=== PATIENT | female | born 1990 | race Caucasian/White ===

== ENCOUNTER → 2016-06-25 | Outpatient (CLI) | payer BC ==
--- NOTE | 2016-06-25 09:50 | US ---
EXAMINATION TYPE: US abdomen complete DATE OF EXAM: 06/25/2016 9:18 AM COMPARISON: NONE CLINICAL HISTORY: 26yr old patient that had s stroke last month, no symptoms, abnormal LFTs. EXAM MEASUREMENTS: Liver Length: 19.0cm Gallbladder Wall: 0.2cm CBD: 0.4cm Spleen: 11.6cm Right Kidney: 9.2 x 3.6 x 5.0cm Left Kidney: 11.9 x 4.9 x 6.2cm ANATOMY: TECHNOLOGIST IMPRESSION: overlying bowel gas and large body habitus limits exam Pancreas: areas seen appears wnl Liver: heterogeneous that is slightly large Gallbladder: wnl Evidence for sonographic Quinn's sign: no CBD: wnl Spleen: wnl Right Kidney: wnl Left Kidney: wnl Upper IVC: wnl Abd Aorta: portions are gassed out, otherwise appears wnl The liver is heterogenous which may reflect fatty liver with mild enlargement.. The intrahepatic por tion of the IVC and proximal abdominal aorta are within normal limits. There is no evidence of demarcus lithiasis. Common bile duct is unremarkable. The visualized portions of the pancreas are homogenous . The spleen is unremarkable. Kidneys are symmetric and free of hydronephrosis. No renal lesions a re seen. IMPRESSION: Fatty liver with mild hepatic enlargement. Normal Values: Liver Length: < 16cm wnl, 17-18cm upper limits, >18cm enlarged Spleen Length = < 13cm Renal Length = 9 - 12cm GB Wall: < 0.3cm CBD: < 0.6cm or < 1.0cm post cholecystectomy
== END | disposition home or self-care (01) ==
LOC: RADUSWWP 08:47
PROVIDERS: ATTEND Family Medicine
DX: K76.0 Fatty (change of) liver, not elsewhere classified (principal); R16.0 Hepatomegaly, not elsewhere classified
CPT/HCPCS: 76700

== ENCOUNTER 2016-07-03 14:27 | Emergency (ER) | payer BC ==
[2016-07-03] MEDS ORDERED: DIAZEPAM 5 MG/ML 2 ML SYRINGE IVP STA (15:40)
[2016-07-03] MEDS ORDERED: SODIUM CHLORIDE 0.9% 1,000 ML IV ONE (15:40)
[2016-07-03] MEDS ORDERED: MECLIZINE 12.5 MG TAB PO STA (15:41)
[2016-07-03 16:16] LABS: Basophils # (A) 0.1 k/uL (0-0.2); Basophils % (A) 1 %; CH 27.9; CHCM 34.2; Eosinophils % (A) 0 %; HCT 46.4 % (34.0-46.0); HDW 3.04; HGB 15.4 gm/dL (11.4-16.0); Luc # (Auto) 0.17; Luc % (Auto) 2; Lymphocytes # (A) 1.8 k/uL (1.0-4.8); Lymphocytes % (A) 16 %; MCH 27.2 pg (25.0-35.0); MCHC 33.2 g/dL (31.0-37.0); MCV 81.9 fL (80.0-100.0); Mean Platelet Volume 7.8; Monocytes # (A) 0.6 k/uL (0-1.0); Monocytes % (A) 5 %; Neutrophils # (A) 8.1 k/uL (1.3-7.7); Neutrophils % (A) 76 %; RBC 5.66 m/uL (3.80-5.40); RDW 14.5 % (11.5-15.5); WBC 10.7 k/uL (3.8-10.6); WBC (Perox) 10.27
[2016-07-03 16:25] LABS: Anion Gap 15 mmol/L; Blood Urea Nitrogen 8 mg/dL (7-17); Calcium 10.3 mg/dL (8.4-10.2); Carbon Dioxide 23 mmol/L (22-30); Chloride 107 mmol/L (98-107); Glucose 99 mg/dL (74-99); HCG,Qualitative Serum Not Detected; Non-African American GFR(MDRD) >60 (>60 ml/min/1.73 sqM); Sodium 145 mmol/L (137-145)
[2016-07-03 16:26] LABS: INR 1.1 (<1.1); Partial Thromboplastin Time 24.8 sec (22.0-30.0); Prothrombin Time 10.8 sec (9.0-12.0)
--- NOTE | 2016-07-03 17:09 | CT ---
EXAMINATION TYPE: CT brain wo con DATE OF EXAM: 07/03/2016 4:59 PM COMPARISON: 05/30/2016 HISTORY: 26-year-old female with right side facial and right hand numbness. Previous history of strok e. TECHNIQUE: Examination was done in axial plane without intravenous contrast. Coronal and sagittal reconstructio ns performed. CT DLP: 910.4 mGycm Automated exposure control for dose reduction was used. FINDINGS: There is no evidence of acute intracranial hemorrhage, acute ischemic changes, mass, mass-effect, or extra-axial fluid collection. There is no effacement of cerebral sulci or basal subarachnoid cister ns. There is no hydrocephalus. There is no midline shift. Greene-white matter distinction is preserv ed. There is some asymmetric prominence to the right sylvian fissure as compared to the prior exam possib ly relating some volume loss as a sequela of patient's previous infarct. Cerebellar tonsillar ectopia, intermediate between benign tonsillar ectopia and Chiari I malformation . Paranasal sinuses and mastoid air cells are well pneumatized. Orbits and globes are intact. IMPRESSION: 1. No acute intracranial abnormality seen. 2. As compared to the prior exam, there is asymmetric prominence to the right sylvian fissure possibl y due to volume loss as a sequela of patient's previous infarct. 3. Indeterminate between benign cerebellar tonsillar ectopia and Chiari 1 malformation. Clinically co rrelate with patient's symptoms.
--- NOTE | 2016-07-03 17:20 | XR ---
EXAMINATION TYPE: XR chest 2V DATE OF EXAM: 07/03/2016 5:02 PM COMPARISON: 05/30/2016 HISTORY: Weakness TECHNIQUE: Frontal and lateral views of the chest are obtained. FINDINGS: Heart and mediastinum are normal. Lungs are clear. Diaphragm is normal. Bony thorax and so ft tissues appear normal. IMPRESSION: Normal chest. No change.
--- NOTE | 2016-07-03 18:02 | ED ---
General Adult HPI - General Chief complaint: Dizziness Stated complaint: Dizzy/Numbness Time Seen by Provider: 07/03/16 14:51 Source: patient, family Mode of arrival: wheelchair Limitations: no limitations - History of Present Illness Initial comments: 26-year-old female with past medical history of CVA on May 30 presented for evaluation of lightheadedness since her discharge back in May. She states that she initially had her symptoms for a few days but they resolved for about a week. Her symptoms resumed and she has continued to have lightheadedness/dizziness since. She states that recently she had some right cheek numbness and at another occasion right fourth and fifth finger numbness as well as right ear pain. She describes her symptoms as feeling drunk and that when she lays down she feels like she continues to move. Her CVA left her with minimal left-sided deficits including weakness and decreased sensation and she states that these have not worsened.Her Neurologist is Dr. Newton. - Related Data Home Medications Medication Instructions Recorded Confirmed Clopidogrel [Plavix] 75 mg PO DAILY 07/03/16 07/03/16 Previous Rx's Medication Instructions Recorded Aspirin 81 mg PO DAILY #30 chewable 06/01/16 Atorvastatin Calcium [Lipitor] 20 mg PO HS #30 tab 06/01/16 Diazepam [Valium] 5 mg PO BID PRN #8 tab 07/03/16 Meclizine [Antivert] 25 mg PO BID #60 tab 07/03/16 Allergies Allergy/AdvReac Type Severity Reaction Status Date / Time No Known Allergies Allergy Verified 07/03/16 15:59 Review of Systems ROS Statement: Those systems with pertinent positive or pertinent negative responses have been documented in the HPI. General: Patient denies fever, chills,nausea, or vomiting. HEENT: No visual changes. No eye pain. No nasal symptoms. No dysphagia.No odynophagia. No ENT pain. Cardiac: No chest pain. No palpitations. Pulmonary; No dyspnea. Denies cough. GI: No abdominal pain. No diarrhea. No constipation. No bowel habit changes. No melena. No hematochezia. See general. : No dysuria.No hematuria. No hesitancy. No urgency. No renal lithiasis history. Musculoskeletal: No musculoskeletal pain. Orthopedic: Denies fracture history. Integumentary: Denies rash. Denies pruritis. Neurologic: Positive lightheadedness dizziness since May. Denies any lateralizing weakness. Denies numbness. Denies tingling. No seizure activity. History of CVA . Heme/Onc: Denies anemia. Denies cancer. Denies adenopathy. ROS Other: All systems not noted in ROS Statement are negative. Past Medical History Past Medical History: Asthma, CVA/TIA History of Any Multi-Drug Resistant Organisms: None Reported Past Surgical History: No Surgical Hx Reported Past Anesthesia/Blood Transfusion Reactions: No Reported Reaction Past Psychological History: Anxiety, Depression Smoking Status: Never smoker Past Alcohol Use History: None Reported Past Drug Use History: None Reported - Past Family History Father Family Medical History: No Reported History Mother Family Medical History: AFIB, Hypertension General Exam - General Exam Comments Initial Comments: General: The patient is awake and alert, in no distress, and does not appear acutely ill. Eye: Pupils are equal, round and reactive to light, extra-ocular movements are intact; there is normal conjunctiva bilaterally. No signs of icterus. Ears, nose, mouth and throat: There are moist mucous membranes and no oral lesions. Neck: The neck is supple, there is no tenderness or JVD. Cardiovascular: There is a regular rate and rhythm. No murmur, rub or gallop is appreciated. Respiratory: Lungs are clear to auscultation, respirations are non-labored, breath sounds are equal. No wheezes, stridor, rales, or rhonchi. Gastrointestinal: Soft, non-distended, non-tender abdomen without masses or organomegaly noted. There is no rebound or guarding present. Back: There is no tenderness to palpation in the midline. There is no obvious deformity. No rashes noted. Musculoskeletal: Normal ROM, no tenderness, There is no pedal edema. There is no calf tenderness or swelling. Sensation intact. Pulses equal bilaterally 2+. Neurological: CN II-XII intact, left-sided sensory deficits that are unchanged from previous. Coordination appears grossly intact. Speech is normal. Skin: Skin is warm and dry and no rashes or lesions are noted. Psychiatric: Cooperative, appropriate mood & affect, normal judgment. Patient anxious and tearful throughout exam. Limitations: no limitations Course Vital Signs 07/03/16 07/03/16 14:28 18:30 Temperature 99.6 F 97.9 F Pulse Rate 86 77 Respiratory 20 18 Rate Blood Pressure 140/83 137/69 O2 Sat by Pulse 99 99 Oximetry EKG Findings - EKG Comments: EKG Findings:: EKG shows normal sinus rhythm with sinus arrhythmia, ventricular rate of 80, DICK 132, QRS 88, QT/QTC 384/442 Medical Decision Making - Medical Decision Making 26-year-old female with history of CVA on May 30 presented for evaluation of lightheadedness and dizziness that is present since discharge on May 30. She states that she has been evaluated by her primary care physician a few times for the dizziness and has not been provided with any symptomatic relief. On physical exam the patient has left sided sensory deficit, mild, but not worsened since her recovery from the CVA. Although she states a left-sided weakness this is not noted on physical exam. Cranial nerves II through XII intact and patient ambulated in hallways with normal gait and station, without ataxia. Patient is anxious and tearful throughout exam stating that she lives in fear of having another stroke. Discussed the case with her neurologist Dr. Newton who stated that she should have a CT of her head and that if this was negative she should be discharged with Antivert and follow-up with him next week. 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 The patient was informed of this and that she would be discharged with instructions to follow with her primary care doctor and her neurologist. She was reevaluated and had some improvement with her symptoms. She was informed that she should return if her symptoms should worsen or persist. She acknowledged an understanding of this information and agreed with this plan of care. - Lab Data Result diagrams: 07/03/16 15:54 07/03/16 15:54 Lab Results 07/03/16 07/03/16 07/03/16 Range/Units 15:54 15:54 15:54 WBC 10.7 H (3.8-10.6) k/uL RBC 5.66 H (3.80-5.40) m/uL Hgb 15.4 (11.4-16.0) gm/dL Hct 46.4 H (34.0-46.0) % MCV 81.9 (80.0-100.0) fL MCH 27.2 (25.0-35.0) pg MCHC 33.2 (31.0-37.0) g/dL RDW 14.5 (11.5-15.5) % Plt Count 303 (150-450) k/uL Neutrophils % 76 % Lymphocytes % 16 % Monocytes % 5 % Eosinophils % 0 % Basophils % 1 % Neutrophils # 8.1 H (1.3-7.7) k/uL Lymphocytes # 1.8 (1.0-4.8) k/uL Monocytes # 0.6 (0-1.0) k/uL Eosinophils # 0.0 (0-0.7) k/uL Basophils # 0.1 (0-0.2) k/uL PT (9.0-12.0) sec INR (<1.1) APTT (22.0-30.0) sec Sodium 145 (137-145) mmol/L Potassium 4.0 (3.5-5.1) mmol/L Chloride 107 (98-107) mmol/L Carbon Dioxide 23 (22-30) mmol/L Anion Gap 15 mmol/L BUN 8 (7-17) mg/dL Creatinine 0.97 (0.52-1.04) mg/dL Est GFR (MDRD) Af Amer >60 (>60 ml/min/1.73 sqM) Est GFR (MDRD) Non-Af >60 (>60 ml/min/1.73 sqM) Glucose 99 (74-99) mg/dL Calcium 10.3 H (8.4-10.2) mg/dL Troponin I (0.000-0.034) ng/mL NT-Pro-B Natriuret Pep pg/mL HCG, Qual Not Detected Influenza Type A RNA Not Detected (Not Detectd) Influenza Type B (PCR) Not Detected (Not Detectd) 07/03/16 07/03/16 07/03/16 Range/Units 15:54 15:54 15:54 WBC (3.8-10.6) k/uL RBC (3.80-5.40) m/uL Hgb (11.4-16.0) gm/dL Hct (34.0-46.0) % MCV (80.0-100.0) fL MCH (25.0-35.0) pg MCHC (31.0-37.0) g/dL RDW (11.5-15.5) % Plt Count (150-450) k/uL Neutrophils % % Lymphocytes % % Monocytes % % Eosinophils % % Basophils % % Neutrophils # (1.3-7.7) k/uL Lymphocytes # (1.0-4.8) k/uL Monocytes # (0-1.0) k/uL Eosinophils # (0-0.7) k/uL Basophils # (0-0.2) k/uL PT 10.8 (9.0-12.0) sec INR 1.1 (<1.1) APTT 24.8 (22.0-30.0) sec Sodium (137-145) mmol/L Potassium (3.5-5.1) mmol/L Chloride (98-107) mmol/L Carbon Dioxide (22-30) mmol/L Anion Gap mmol/L BUN (7-17) mg/dL Creatinine (0.52-1.04) mg/dL Est GFR (MDRD) Af Amer (>60 ml/min/1.73 sqM) Est GFR (MDRD) Non-Af (>60 ml/min/1.73 sqM) Glucose (74-99) mg/dL Calcium (8.4-10.2) mg/dL Troponin I <0.012 (0.000-0.034) ng/mL NT-Pro-B Natriuret Pep 103 pg/mL HCG, Qual Influenza Type A RNA (Not Detectd) Influenza Type B (PCR) (Not Detectd) Disposition Clinical Impression: Dizziness, Anxiety, Benign paroxysmal positional vertigo Disposition: HOME SELF-CARE Condition: Stable Instructions: Dizziness (ED) Additional Instructions: Please use medication as discussed. Please follow up with family doctor if symptoms have not improved over the next two days. Please return to the emergency room if your symptoms increase or worsen or for any other concerns. Prescriptions: Diazepam [Valium] 5 mg PO BID PRN #8 tab PRN Reason: Anxiety Meclizine [Antivert] 25 mg PO BID #60 tab Referrals: Carlos Spencer MD [Primary Care Provider] - 1-2 days Time of Disposition: 18:01
[2016-07-03 18:33] VITALS: BP 137/69; PULSE 77; RESP 18; TEMP 97.9
== END 2016-07-03 18:30 | disposition home or self-care (01) ==
LOC: EC 14:27
DX: H81.10 Benign paroxysmal vertigo, unspecified ear (principal); F41.9 Anxiety disorder, unspecified; I69.354 Hemiplegia and hemiparesis following cerebral infarction affecting left non-dominant side; Z79.82 Long term (current) use of aspirin; Z79.02 Long term (current) use of antithrombotics/antiplatelets; Z79.899 Other long term (current) drug therapy
CPT/HCPCS: 36415; 93005; 83880; 80048; 84484; 85025; 85610; 85730; 84703; 87502; 71020; 70450; 96374; 96361 ×2; 99284; J3360

== ENCOUNTER → 2017-03-30 | Outpatient (CLI) | payer BC, OTHER ==
--- NOTE | 2017-03-30 14:13 | MR ---
EXAMINATION TYPE: MR shoulder LT wo con DATE OF EXAM: 03/30/2017 COMPARISON: Left shoulder x-ray March 15, 2017 HISTORY: Left shoulder pain with difficulty raising overhead for 9 months. TECHNIQUE: Multiplanar, multisequence imaging of the left shoulder is performed without contrast. FINDINGS: Exam is suboptimal as there is artifact degradation present product of patient motion and b dudley habitus. Rotator Cuff: Supraspinatus and infraspinatus tendons are both intact to humeral head attachment. Ray e increased signal is seen distally. No suspicious partial or full-thickness retracted tear is presen t. Rotator cuff muscle bulk is preserved. Subscapularis tendon is intact. Acromioclavicular Joint: Acromioclavicular joint is felt within normal limits. Distal acromion morpho logy is unremarkable. Glenohumeral Joint: There is small glenohumeral joint effusion. No significant spurring is seen. Labrum: The labrum appears markedly abnormal with increased signal present extending into biceps age- related posteriorly into biceps tendon anchor seen best paracoronal image 9 with extension into intra -articular portion difficult to exclude. There is 9 mm paraLabral cyst correlating with tear on parac oronal image 14 Biceps Tendon: The long head of biceps is in normal location within bicipital groove. Intra-articular portion is less well-seen but felt intact. Bone marrow signal: No focal abnormal marrow signal is appreciated. Other: No additional significant abnormality is appreciated. IMPRESSION: Complex SLAP tear extending into biceps anchor as detailed above.
== END | disposition home or self-care (01) ==
LOC: RADMRIMAIN 11:01
PROVIDERS: ATTEND Orthopaedic Surgery
DX: S43.432A Superior glenoid labrum lesion of left shoulder, initial encounter (principal)

== ENCOUNTER → 2017-05-15 | Outpatient (CLI) | payer OTHER ==
--- NOTE | 2017-05-15 11:29 | MR ---
EXAMINATION TYPE: MR brain wo/w con DATE OF EXAM: 05/15/2017 COMPARISON: CT 07/03/2016 and MRI 06/01/2016 HISTORY: 26 year-old female follow-up for history of stroke, no new symptoms TECHNIQUE: Multiplanar, multisequence images of the brain and brainstem were acquired before and aft er administration of 8.5 mL IV Gadavist. Diffusion weighted imaging is performed. FINDINGS: Pronounced artifacts on the diffusion weighted sequence. Likely related to dental amalgam. Areas of b right signal are symmetrical and in an unusual angular pattern suggesting artifacts. No definite rest ricted diffusion is seen. No evidence for hemorrhage, mass, mass effect, midline shift, herniation, effacement of basal cistern s, or extra-axial fluid collection. There is mild encephalomalacia and gliosis at the site of previous infarct, posterior insular cortex extending into the lateral anterior parietal lobe on the right. There is no abnormal enhancement in t his region The ventricles and sulci are age-appropriate. Major intracranial flow voids are intact. T2/FLAIR weighted sequences show no other white matter signal abnormality. There is limitation in ass essment of the anterior temporal lobes, sylvester, medulla on the axial T2/flair sequence due to dental am algam artifact. Midline structures demonstrate normal morphology. On the present exam, there is redemonstrated crowdi ng at the foramen magnum but now with slight beaked appearance to the cerebellar tonsils and 6 mm pro jection of the tonsils below the foramen magnum. Otherwise, the craniocervical junction is normal. Post contrast images demonstrate no evidence of pathologic enhancement. Dural venous sinuses are pat ent. The visualized sinuses and globes are limited due to the artifact. IMPRESSION: 1. Pronounced artifacts suspected to be due to dental amalgam. No definite acute intracranial abnorma lity seen on DWI. 2. Some interval encephalomalacia and gliosis in the right insular-parietal junction relating to the patient's previous infarct seen on 06/01/2016. 3. 6 mm of cerebellar tonsillar ectopia is currently measured. There is also slightly beaked appearan ce to the tonsils. Correlate for any symptoms of Chiari I malformation
== END | disposition home or self-care (01) ==
LOC: RADMRIMAIN 09:45
PROVIDERS: ATTEND Psychiatry & Neurology Neurology
DX: Q04.8 Other specified congenital malformations of brain (principal); Z86.73 Personal history of transient ischemic attack (TIA), and cerebral infarction without residual deficits
CPT/HCPCS: 70553; A9581

== ENCOUNTER → 2017-07-23 | Outpatient (CLI) | payer OTHER ==
[2017-07-23 13:27] LABS: Prothrombin Time 10.3 sec (9.0-12.0)
== END | disposition home or self-care (01) ==
LOC: LABWHC1 12:43
PROVIDERS: ATTEND Psychiatry & Neurology Neurology
DX: Z09 Encounter for follow-up examination after completed treatment for conditions other than malignant neoplasm (principal); Z86.73 Personal history of transient ischemic attack (TIA), and cerebral infarction without residual deficits
CPT/HCPCS: 36415; 81241; 81291; 85610

== ENCOUNTER 2017-09-28 19:48 | Emergency (ER) | payer OTHER ==
[2017-09-28 19:58] VITALS: TEMP 97.9
[2017-09-28 20:27] LABS: Basophils # (A) 0.1 k/uL (0-0.2); Basophils % (A) 0 %; Eosinophils # (A) 0.1 k/uL (0-0.7); Eosinophils % (A) 1 %; HCT 47.6 % (34.0-46.0); Lymphocytes % (A) 25 %; MCH 26.8 pg (25.0-35.0); MCHC 33.5 g/dL (31.0-37.0); MCV 79.8 fL (80.0-100.0); Mean Platelet Volume 7.1; Monocytes # (A) 0.6 k/uL (0-1.0); Monocytes % (A) 5 %; Neutrophils # (A) 7.9 k/uL (1.3-7.7); Neutrophils % (A) 66 %; Platelet Count 366 k/uL (150-450); RBC 5.96 m/uL (3.80-5.40); RDW 13.9 % (11.5-15.5); WBC 11.9 k/uL (3.8-10.6)
[2017-09-28 20:36] LABS: INR 1.1 (<1.2); Prothrombin Time 10.9 sec (9.0-12.0)
[2017-09-28 20:40] LABS: ALT 34 U/L (9-52); AST 24 U/L (14-36); Albumin 4.7 g/dL (3.5-5.0); Alkaline Phosphatase 120 U/L (38-126); Anion Gap 22 mmol/L; Blood Urea Nitrogen 11 mg/dL (7-17); Calcium 10.4 mg/dL (8.4-10.2); Carbon Dioxide 14 mmol/L (22-30); Chloride 107 mmol/L (98-107); Glucose 85 mg/dL (74-99); Potassium 3.8 mmol/L (3.5-5.1); Sodium 143 mmol/L (137-145); Total Bilirubin 0.5 mg/dL (0.2-1.3); Total Protein 8.3 g/dL (6.3-8.2)
[2017-09-28 20:41] LABS: Creatine Kinase 64 U/L (30-135)
[2017-09-28 20:53] LABS: Creatine Kinase MB 0.9 ng/mL (0.0-2.4); Troponin I <0.012 ng/mL (0.000-0.034)
[2017-09-28] MEDS ORDERED: MAG HYDROX/AL HYDROX/SIMETH 30 ML, HYOSCYAMINE ELIXIR 10 ML, CIMETIDINE HCL 300 MG PO STA ×3 (22:27)
[2017-09-28] MEDS ORDERED: LORazepam 2 MG/ML INJ IV STA (22:27)
[2017-09-28] MEDS ORDERED: ONDANSETRON 4 MG/2 ML VIAL IVP STA (22:28)
[2017-09-28] MEDS ORDERED: FAMOTIDINE 20 MG/2 ML VIAL IV STA (22:28)
--- NOTE | 2017-09-28 22:34 | ED ---
General Adult HPI - General Chief complaint: Neuro Symptoms/Deficit Stated complaint: left side numbness/chest pain/nausea Time Seen by Provider: 09/28/17 22:14 Source: patient, RN notes reviewed Mode of arrival: wheelchair Limitations: no limitations - History of Present Illness Initial comments: This a 27-year-old female presents emergency Department with multiple complaints. Patient states that she's been having worsening depression and anxiety over the last few weeks to months. She states she does take Paxil currently. She states that she's gained to the point where she has not been eating or drinking much because she's been having some acid reflux and epigastric discomfort. Patient denies any vomiting at this time denies any diarrhea, constipation, melena or hematochezia. Patient states that she's also been having ongoing chest pain over the last few days she has been unchanged no shortness of breath. She does admit that she believes it's related to her anxiety though she has a history of CVA in which she does see a neurologist. Patient states he cannot cause for her CVA though she is currently taking Plavix. Patient went to a headache with some worst headache she states it's diffuse headache. She denies any focal weakness. Patient denies any chance . Patient states she currently takes Depo-Provera injections. Patient any dysuria, hematuria - Related Data Home Medications Medication Instructions Recorded Confirmed Clopidogrel [Plavix] 75 mg PO DAILY 07/03/16 06/05/17 Baclofen [Lioresal] 10 mg PO HS 06/05/17 06/05/17 Cholecalciferol [Vitamin D3] 1,000 unit PO DAILY 06/05/17 06/05/17 Multivitamins, Thera [Multivitamin 1 tab PO DAILY 06/05/17 06/05/17 (formulary)] [place]-3 Fatty Acids/Fish Oil [Fish 1 cap PO DAILY 06/05/17 06/05/17 Oil 1,000 mg Softgel] PARoxetine [Paxil] 20 mg PO DAILY 06/05/17 06/05/17 Previous Rx's Medication Instructions Recorded Famotidine [Pepcid] 20 mg PO BID #28 tablet 09/28/17 LORazepam [Ativan] 0.5 mg PO BID #10 tab 09/28/17 Ondansetron Odt [Zofran Odt] 4 mg PO Q8HR PRN #10 tab 09/28/17 Sucralfate [Carafate] 1 gm PO BID #14 tablet 09/28/17 Allergies Allergy/AdvReac Type Severity Reaction Status Date / Time No Known Allergies Allergy Verified 09/28/17 19:58 Review of Systems ROS Statement: Those systems with pertinent positive or pertinent negative responses have been documented in the HPI. ROS Other: All systems not noted in ROS Statement are negative. Past Medical History Past Medical History: Asthma, CVA/TIA History of Any Multi-Drug Resistant Organisms: None Reported Past Surgical History: No Surgical Hx Reported Past Anesthesia/Blood Transfusion Reactions: No Reported Reaction Past Psychological History: Anxiety, Depression Smoking Status: Never smoker Past Alcohol Use History: None Reported Past Drug Use History: None Reported - Past Family History Father Family Medical History: No Reported History Mother Family Medical History: AFIB, Hypertension General Exam Limitations: no limitations General appearance: alert, in no apparent distress, anxious Head exam: Present: atraumatic, normocephalic, normal inspection Eye exam: Present: normal appearance, PERRL, EOMI. Absent: scleral icterus, conjunctival injection, periorbital swelling ENT exam: Present: normal exam, normal oropharynx, mucous membranes moist Neck exam: Present: normal inspection, full ROM. Absent: tenderness, meningismus, lymphadenopathy Respiratory exam: Present: normal lung sounds bilaterally. Absent: respiratory distress, wheezes, rales, rhonchi, stridor Cardiovascular Exam: Present: normal rhythm, tachycardia, normal heart sounds. Absent: systolic murmur, diastolic murmur, rubs, gallop, clicks GI/Abdominal exam: Present: soft, tenderness (Epigastric tenderness), normal bowel sounds. Absent: distended, guarding, rebound, rigid Back exam: Absent: CVA tenderness (R), CVA tenderness (L) Neurological exam: Present: alert, oriented X3, CN II-XII intact, reflexes normal, other (Finger to nose intact bilaterally without overshooting.). Absent : motor sensory deficit Skin exam: Present: warm, dry, intact, normal color. Absent: rash Course Vital Signs 09/28/17 09/28/17 19:56 23:10 Temperature 97.9 F Pulse Rate 117 H 80 Respiratory 26 H 18 Rate Blood Pressure 160/102 121/66 O2 Sat by Pulse 99 99 Oximetry Medical Decision Making - Medical Decision Making 27-year-old female presented for multiple complaints. Patient went of headache chest pain nausea upset stomach. Patient has gastritis related to dietary issues. Patient was started on Pepcid as she states she cannot take omeprazole. Patient was also given Carafate. Patient is improved after Ativan she was having a panic attack the into her chest discomfort, TMs and tingling which has resolved. Patient had CT due to prior CVA there is no acute changes. She has no neurological deficits. ACS is 15 and I H scale 0. Patient is recommended to follow-up tomorrow return for any worsening symptoms. - Lab Data Result diagrams: 09/28/17 20:18 09/28/17 20:18 Lab Results 09/28/17 09/28/17 09/28/17 Range/Units 20:18 20:18 20:18 WBC 11.9 H (3.8-10.6) k/uL RBC 5.96 H (3.80-5.40) m/uL Hgb 16.0 (11.4-16.0) gm/dL Hct 47.6 H (34.0-46.0) % MCV 79.8 L (80.0-100.0) fL MCH 26.8 (25.0-35.0) pg MCHC 33.5 (31.0-37.0) g/dL RDW 13.9 (11.5-15.5) % Plt Count 366 (150-450) k/uL Neutrophils % 66 % Lymphocytes % 25 % Monocytes % 5 % Eosinophils % 1 % Basophils % 0 % Neutrophils # 7.9 H (1.3-7.7) k/uL Lymphocytes # 3.0 (1.0-4.8) k/uL Monocytes # 0.6 (0-1.0) k/uL Eosinophils # 0.1 (0-0.7) k/uL Basophils # 0.1 (0-0.2) k/uL PT (9.0-12.0) sec INR (<1.2) APTT (22.0-30.0) sec Sodium 143 (137-145) mmol/L Potassium 3.8 (3.5-5.1) mmol/L Chloride 107 (98-107) mmol/L Carbon Dioxide 14 L (22-30) mmol/L Anion Gap 22 mmol/L BUN 11 (7-17) mg/dL Creatinine 0.85 (0.52-1.04) mg/dL Est GFR (CKD-EPI)AfAm >90 (>60 ml/min/1.73 sqM) Est GFR (CKD-EPI)NonAf >90 (>60 ml/min/1.73 sqM) Glucose 85 (74-99) mg/dL Calcium 10.4 H (8.4-10.2) mg/dL Total Bilirubin 0.5 (0.2-1.3) mg/dL AST 24 (14-36) U/L ALT 34 (9-52) U/L Alkaline Phosphatase 120 (38-126) U/L Total Creatine Kinase 64 (30-135) U/L CK-MB (CK-2) 0.9 (0.0-2.4) ng/mL CK-MB (CK-2) Rel Index 1.4 Troponin I <0.012 (0.000-0.034) ng/mL Total Protein 8.3 H (6.3-8.2) g/dL Albumin 4.7 (3.5-5.0) g/dL Urine Color Urine Appearance (Clear) Urine pH (5.0-8.0) Ur Specific [place] (1.001-1.035) Urine Protein (Negative) Urine Glucose (UA) (Negative) Urine Ketones (Negative) Urine Blood (Negative) Urine Nitrite (Negative) Urine Bilirubin (Negative) Urine Urobilinogen (<2.0) mg/dL Ur Leukocyte Esterase (Negative) Urine RBC (0-5) /hpf Urine WBC (0-5) /hpf Ur Squamous Epith Cells (0-4) /hpf Hyaline Casts (0-2) /lpf Urine Mucus (None) /hpf Urine HCG, Qual (Not Detectd) Urine Opiates Screen (NotDetected) Ur Oxycodone Screen (NotDetected) Urine Methadone Screen (NotDetected) Ur Propoxyphene Screen (NotDetected) Ur Barbiturates Screen (NotDetected) U Tricyclic Antidepress (NotDetected) Ur Phencyclidine Scrn (NotDetected) Ur Amphetamines Screen (NotDetected) U Methamphetamines Scrn (NotDetected) U Benzodiazepines Scrn (NotDetected) Urine Cocaine Screen (NotDetected) U Marijuana (THC) Screen (NotDetected) 09/28/17 09/28/17 09/28/17 Range/Units 20:18 23:00 23:00 WBC (3.8-10.6) k/uL RBC (3.80-5.40) m/uL Hgb (11.4-16.0) gm/dL Hct (34.0-46.0) % MCV (80.0-100.0) fL MCH (25.0-35.0) pg MCHC (31.0-37.0) g/dL RDW (11.5-15.5) % Plt Count (150-450) k/uL Neutrophils % % Lymphocytes % % Monocytes % % Eosinophils % % Basophils % % Neutrophils # (1.3-7.7) k/uL Lymphocytes # (1.0-4.8) k/uL Monocytes # (0-1.0) k/uL Eosinophils # (0-0.7) k/uL Basophils # (0-0.2) k/uL PT 10.9 (9.0-12.0) sec INR 1.1 (<1.2) APTT 23.0 (22.0-30.0) sec Sodium (137-145) mmol/L Potassium (3.5-5.1) mmol/L Chloride (98-107) mmol/L Carbon Dioxide (22-30) mmol/L Anion Gap mmol/L BUN (7-17) mg/dL Creatinine (0.52-1.04) mg/dL Est GFR (CKD-EPI)AfAm (>60 ml/min/1.73 sqM) Est GFR (CKD-EPI)NonAf (>60 ml/min/1.73 sqM) Glucose (74-99) mg/dL Calcium (8.4-10.2) mg/dL Total Bilirubin (0.2-1.3) mg/dL AST (14-36) U/L ALT (9-52) U/L Alkaline Phosphatase (38-126) U/L Total Creatine Kinase (30-135) U/L CK-MB (CK-2) (0.0-2.4) ng/mL CK-MB (CK-2) Rel Index Troponin I (0.000-0.034) ng/mL Total Protein (6.3-8.2) g/dL Albumin (3.5-5.0) g/dL Urine Color Yellow Urine Appearance Cloudy H (Clear) Urine pH 6.0 (5.0-8.0) Ur Specific [place] 1.021 (1.001-1.035) Urine Protein 1+ H (Negative) Urine Glucose (UA) Negative (Negative) Urine Ketones 4+ H (Negative) Urine Blood Moderate H (Negative) Urine Nitrite Negative (Negative) Urine Bilirubin Negative (Negative) Urine Urobilinogen 2.0 (<2.0) mg/dL Ur Leukocyte Esterase Large H (Negative) Urine RBC 30 H (0-5) /hpf Urine WBC 43 H (0-5) /hpf Ur Squamous Epith Cells 2 (0-4) /hpf Hyaline Casts 1 (0-2) /lpf Urine Mucus Moderate H (None) /hpf Urine HCG, Qual Not Detected (Not Detectd) Urine Opiates Screen Not Detected (NotDetected) Ur Oxycodone Screen Not Detected (NotDetected) Urine Methadone Screen Not Detected (NotDetected) Ur Propoxyphene Screen Not Detected (NotDetected) Ur Barbiturates Screen Not Detected (NotDetected) U Tricyclic Antidepress Not Detected (NotDetected) Ur Phencyclidine Scrn Not Detected (NotDetected) Ur Amphetamines Screen Not Detected (NotDetected) U Methamphetamines Scrn Not Detected (NotDetected) U Benzodiazepines Scrn Detected H (NotDetected) Urine Cocaine Screen Not Detected (NotDetected) U Marijuana (THC) Screen Not Detected (NotDetected) Disposition Clinical Impression: Gastritis, Anxiety, Panic attack, Depression Disposition: HOME SELF-CARE Condition: Stable Instructions: Gastritis (ED) Additional Instructions: Please return to the Emergency Department if symptoms worsen or any other concerns. Prescriptions: Famotidine [Pepcid] 20 mg PO BID #28 tablet LORazepam [Ativan] 0.5 mg PO BID #10 tab Ondansetron Odt [Zofran Odt] 4 mg PO Q8HR PRN #10 tab PRN Reason: Nausea Sucralfate [Carafate] 1 gm PO BID #14 tablet Referrals: Carlos Spencer MD [Primary Care Provider] - 1-2 days Time of Disposition: 23:56
--- NOTE | 2017-09-28 23:12 | CT ---
EXAMINATION TYPE: CT brain wo con DATE OF EXAM: 09/28/2017 COMPARISON: 06/05/2017 HISTORY: Headache, left sided numbness. CT DLP: 803.7 mGycm. Automated Exposure Control for Dose Reduction was Utilized. TECHNIQUE: CT scan of the head is performed without contrast. FINDINGS: There is a 3 x 2 cm area of hypodensity in the right parietal lobe consistent with old cor tical infarct. There is no mass effect nor midline shift. There is no sign of intracranial hemorrhage . Ventricles of normal size. CONCLUSION: Old right temporal parietal cortical infarct without change compared to last exam. No acute intracran ial abnormality.
--- NOTE | 2017-09-28 23:14 | XR ---
EXAMINATION TYPE: XR chest 2V DATE OF EXAM: 09/28/2017 COMPARISON: 07/03/2016 HISTORY: Chest pain TECHNIQUE: Frontal and lateral views of the chest are obtained. FINDINGS: Heart and mediastinum are normal. Lungs are clear. Diaphragm is normal. There are chest le ads. Bony thorax is intact. IMPRESSION: Normal chest. No change.
[2017-09-28 23:15] VITALS: RESP 18
[2017-09-28 23:21] LABS: Appearance,Urine Cloudy (Clear); Bilirubin,Urine Negative (Negative); Blood,Urine Moderate (Negative); Color,Urine Yellow; Glucose,Urine (UA) Negative (Negative); Hyaline Casts,Urine 1 /lpf (0-2); Ketones,Urine 4+ (Negative); Leukocyte Esterase,Urine Large (Negative); Mucus,Urine Moderate /hpf; Nitrite,Urine Negative (Negative); Protein,Urine 1+ (Negative); RBC,Urine 30 /hpf (0-5); Specific Gravity,Urine 1.021 (1.001-1.035); Squamous Epithelial Cell,Urine 2 /hpf (0-4); WBC,Urine 43 /hpf (0-5)
[2017-09-28 23:28] LABS: Amphetamine Screen,Urine Not Detected (NotDetected); Barbiturate Screen,Urine Not Detected (NotDetected); Benzodiazepines Screen,Urine Detected (NotDetected); Cocaine Screen,Urine Not Detected (NotDetected); Methadone Screen, Urine Not Detected (NotDetected); Opiate Screen,Urine Not Detected (NotDetected); Oxycodone Screen, Urine Not Detected (NotDetected); Phencyclidine Screen,Urine Not Detected (NotDetected); Tricyclic Antidepressant,Urine Not Detected (NotDetected); Urn Cannabinoid Scrn Not Detected (NotDetected)
[2017-09-29 00:23] VITALS: BP 119/73; PULSE 72
== END 2017-09-29 00:27 | disposition home or self-care (01) ==
LOC: EC 19:48
DX: F32.9 Major depressive disorder, single episode, unspecified (principal); K29.70 Gastritis, unspecified, without bleeding; F41.9 Anxiety disorder, unspecified; F41.0 Panic disorder [episodic paroxysmal anxiety]; R07.9 Chest pain, unspecified; R51 Headache; R30.0 Dysuria; R31.9 Hematuria, unspecified; R00.0 Tachycardia, unspecified; Z86.73 Personal history of transient ischemic attack (TIA), and cerebral infarction without residual deficits; Z79.02 Long term (current) use of antithrombotics/antiplatelets; Z79.899 Other long term (current) drug therapy
CPT/HCPCS: 99285; 96374; 96375 ×2; 36415; 93005; 80053; 82550; 82553; 84484; 85025; 85610; 85730; 81001; 81025; 80306; 71046; 70450; J2060; J2405

== ENCOUNTER 2017-10-29 12:15 | Emergency (ER) | payer OTHER ==
[2017-10-29 12:32] VITALS: RESP 18
--- NOTE | 2017-10-29 12:54 | ED ---
General Adult HPI - General Chief complaint: Psychiatric Symptoms Stated complaint: Mental Health Eval Time Seen by Provider: 10/29/17 12:35 Source: patient, RN notes reviewed Mode of arrival: EMS Limitations: no limitations - History of Present Illness Initial comments: Patient 27-year-old female presenting to the emergency room today by EMS with chief complaint of increased depression. Patient did see her family physician today [facility] here by EMS for psychiatric evaluation. Patient does admit to feeling suicidal and having specific thoughts 2 days ago. She states that she thought about taking a bunch of pills. She states she does not feel suicidal today but she is depressed states her appetite spelled down not eating well. She states her Paxil was increased approximately a week to week and a half ago and feels like this is made things worse. Patient denies any other complaints. Denies any fever or chills. Denies any cough or congestion. Denies any pain. - Related Data Home Medications Medication Instructions Recorded Confirmed Clopidogrel [Plavix] 75 mg PO DAILY 07/03/16 10/29/17 Cholecalciferol [Vitamin D3] 1,000 unit PO DAILY 06/05/17 10/29/17 [place]-3 Fatty Acids/Fish Oil [Fish 1 cap PO DAILY 06/05/17 10/29/17 Oil 1,000 mg Softgel] PARoxetine HCL [Paxil] 30 mg PO DAILY 10/29/17 10/29/17 Allergies Allergy/AdvReac Type Severity Reaction Status Date / Time No Known Allergies Allergy Verified 10/29/17 13:21 Review of Systems ROS Statement: Those systems with pertinent positive or pertinent negative responses have been documented in the HPI. ROS Other: All systems not noted in ROS Statement are negative. Past Medical History Past Medical History: Asthma, CVA/TIA History of Any Multi-Drug Resistant Organisms: None Reported Past Surgical History: No Surgical Hx Reported Past Anesthesia/Blood Transfusion Reactions: No Reported Reaction Past Psychological History: Anxiety, Depression Smoking Status: Never smoker Past Alcohol Use History: None Reported Past Drug Use History: None Reported - Past Family History Father Family Medical History: No Reported History Mother Family Medical History: AFIB, Hypertension General Exam - General Exam Comments Initial Comments: General: The patient is awake and alert, in no distress, and does not appear acutely ill. Eye: Pupils are equal, round and reactive to light, extra-ocular movements are intact. No nystagmus. There is normal conjunctiva bilaterally. No signs of icterus. Ears, nose, mouth and throat: There are moist mucous membranes and no oral lesions. Neck: The neck is supple, there is no tenderness or JVD. Cardiovascular: There is a regular rate and rhythm. No murmur, rub or gallop is appreciated. Respiratory: Lungs are clear to auscultation, respirations are non-labored, breath sounds are equal. No wheezes, stridor, rales, or rhonchi. Musculoskeletal: Normal ROM, no tenderness. Strength 5/5. Sensation intact. Neurological: A&O x 3. CN II-XII intact, There are no obvious motor or sensory deficits. Coordination appears grossly intact. Speech is normal. Skin: Skin is warm and dry and no rashes or lesions are noted. Psychiatric: Cooperative Limitations: no limitations Course Vital Signs 10/29/17 12:20 Temperature 98.2 F Pulse Rate 77 Respiratory 18 Rate Blood Pressure 125/86 O2 Sat by Pulse 96 Oximetry Medical Decision Making - Medical Decision Making Patient has been seen here in the emergency room by mental health. Patient admits that she had thoughts of hurting herself 2 days ago no thoughts today. She contracts for safety and dental health feels comfortable discharging her at this time to follow-up over the next 2 days. Patient contracts for safety and will return if symptoms increase or worsen. Disposition Clinical Impression: Depression Disposition: HOME SELF-CARE Condition: Good Instructions: Depression (ED) Additional Instructions: [facility] follow[facility]up with [facility] OVER the next 2 days as discussed. Please return here to emergency room if any symptoms increase or worsen or for any other concerns. Is patient prescribed a controlled substance at d/c from ED?: No Referrals: Carlos Spencer MD [Primary Care Provider] - 1-2 days Time of Disposition: 15:23
[2017-10-29 15:33] VITALS: BP 127/73; PULSE 78; TEMP 97.6
== END 2017-10-29 15:36 | disposition home or self-care (01) ==
LOC: EC 12:15 → SUPCPDRO 12:15 → EC 15:36
DX: F32.9 Major depressive disorder, single episode, unspecified (principal); F41.9 Anxiety disorder, unspecified; Z86.73 Personal history of transient ischemic attack (TIA), and cerebral infarction without residual deficits; Z79.02 Long term (current) use of antithrombotics/antiplatelets; Z79.899 Other long term (current) drug therapy
CPT/HCPCS: 82075; 99284

== ENCOUNTER 2019-02-26 14:50 | Emergency (ER) | payer OTHER ==
[2019-02-26] MEDS ORDERED: SODIUM CHLORIDE 0.9% 1,000 ML IV STA (15:08)
[2019-02-26] MEDS ORDERED: PANTOPRAZOLE 40 MG/10 ML VIAL IVP STA (15:11)
[2019-02-26] MEDS ORDERED: METOCLOPRAMIDE 5 MG/ML 2 ML VIAL IVP STA (15:11)
[2019-02-26] MEDS ORDERED: DIAZEPAM 5 MG/ML 2 ML INJ IVP STA (15:22)
[2019-02-26 15:53] LABS: Anisocytosis Slight; Basophils # (A) 0.1 k/uL (0-0.2); Basophils % (A) 1 %; Eosinophils # (A) 0.1 k/uL (0-0.7); Eosinophils % (A) 1 %; HCT 49.3 % (34.0-46.0); HGB 16.9 gm/dL (11.4-16.0); Lymphocytes # (A) 2.4 k/uL (1.0-4.8); Lymphocytes % (A) 13 %; MCH 28.8 pg (25.0-35.0); MCHC 34.2 g/dL (31.0-37.0); MCV 84.1 fL (80.0-100.0); Mean Platelet Volume 6.9; Monocytes # (A) 0.8 k/uL (0-1.0); Monocytes % (A) 4 %; Neutrophils # (A) 14.3 k/uL (1.3-7.7); Neutrophils % (A) 80 %; Platelet Count 288 k/uL (150-450); RBC 5.87 m/uL (3.80-5.40); RDW 17.5 % (11.5-15.5); WBC 17.8 k/uL (3.8-10.6)
[2019-02-26 15:57] VITALS: RESP 16
[2019-02-26 16:01] LABS: ALT 42 U/L (9-52); AST 44 U/L (14-36); African American GFR (CKD) >90 (>60 ml/min/1.73 sqM); Albumin 4.7 g/dL (3.5-5.0); Alkaline Phosphatase 143 U/L (38-126); Anion Gap 16 mmol/L; Blood Urea Nitrogen 12 mg/dL (7-17); Calcium 9.9 mg/dL (8.4-10.2); Carbon Dioxide 18 mmol/L (22-30); Chloride 108 mmol/L (98-107); Glucose 99 mg/dL (74-99); Sodium 142 mmol/L (137-145); Total Bilirubin 0.8 mg/dL (0.2-1.3); Total Protein 8.6 g/dL (6.3-8.2)
--- NOTE | 2019-02-26 16:01 | ED ---
Dizziness HPI - General Chief Complaint: Dizziness Stated Complaint: Abd pain Time Seen by Provider: 02/26/19 14:56 Source: patient Mode of arrival: ambulatory Limitations: no limitations - History of Present Illness Initial Comments: Patient is a 28-year-old female presenting to the emergency Department with complaints of vertigo x 1 week. Patient has past medical history of stroke 2 years ago. Patient states she has had vertigo in the past but has never lasted this long. Patient states she is having sensation things around her spitting. Patient states she also feels like she is "dropping from a roller coaster." Patient states she does have meclizine at home however it is not helping this time. Patient is also complaining of burning sensation in her stomach. Patient states that started today. Patient does have past medical history of an ulcer. Patient took a Zantac today and it did not help. Patient admits to some mild nausea. Patient denies any fever, chills, chest pain, shortness of breath, diarrhea, vomiting. Patient has no other complaints at this time. Upon arrival to ER vital signs are stable, afebrile. - Related Data Home Medications Medication Instructions Recorded Confirmed Clopidogrel [Plavix] 75 mg PO DAILY 07/03/16 10/29/17 Cholecalciferol [Vitamin D3] 1,000 unit PO DAILY 06/05/17 10/29/17 [place]-3 Fatty Acids/Fish Oil [Fish 1 cap PO DAILY 06/05/17 10/29/17 Oil 1,000 mg Softgel] PARoxetine HCL [Paxil] 30 mg PO DAILY 10/29/17 10/29/17 Previous Rx's Medication Instructions Recorded LORazepam [Ativan] 1 mg PO BID PRN 5 Days #10 tab 02/26/19 Ondansetron Odt [Zofran Odt] 4 mg PO Q8HR PRN #10 tab 02/26/19 Allergies Allergy/AdvReac Type Severity Reaction Status Date / Time No Known Allergies Allergy Verified 02/26/19 14:55 Review of Systems ROS Statement: Those systems with pertinent positive or pertinent negative responses have been documented in the HPI. ROS Other: All systems not noted in ROS Statement are negative. Past Medical History Past Medical History: Asthma, CVA/TIA History of Any Multi-Drug Resistant Organisms: None Reported Past Surgical History: No Surgical Hx Reported Past Anesthesia/Blood Transfusion Reactions: No Reported Reaction Past Psychological History: Anxiety, Depression Smoking Status: Never smoker Past Alcohol Use History: Occasional - Past Family History Father Family Medical History: No Reported History Mother Family Medical History: AFIB, Hypertension General Exam - General Exam Comments Initial Comments: GENERAL: Well-appearing, well-nourished and in no acute distress. HEAD: Atraumatic, normocephalic. EYES: Pupils equal round and reactive to light, extraocular movements intact, sclera anicteric, conjunctiva are normal. ENT: TMs normal, nares patent, oropharynx clear without exudates. Moist mucous membranes. NECK: Normal range of motion, supple without lymphadenopathy or JVD. LUNGS: Breath sounds clear to auscultation bilaterally and equal. No wheezes rales or rhonchi. HEART: Regular rate and rhythm without murmurs, rubs or gallops. ABDOMEN: Mild epigastric tenderness. Soft, normoactive bowel sounds. No guarding, no rebound. No masses appreciated. : Deferred EXTREMITIES: Normal range of motion, no pitting or edema. No clubbing or cyanosis. Strength is 5 out of 5 in upper and lower extremities. NEUROLOGICAL: Cranial nerves II through XII grossly intact. Normal speech, normal gait. PSYCH: Normal mood, normal affect. SKIN: Warm, Dry, normal turgor, no rashes or lesions noted. Limitations: no limitations Course Vital Signs 02/26/19 02/26/19 02/26/19 14:52 15:53 18:05 Temperature 98.9 F 98.5 F Pulse Rate 102 H 95 Respiratory 18 16 16 Rate Blood Pressure 120/91 125/87 O2 Sat by Pulse 99 99 Oximetry EKG Findings - EKG Comments: EKG Findings:: Ventricular rate 95, MI interval 118, QTC 442. Normal sinus rhythm. No acute ST segment changes. Medical Decision Making - Medical Decision Making Patient is a 20-year-old female presenting with vertigo times one week and epigastric pain that started this morning. Patient has history of stroke 2 years ago. Patient does have a history of vertigo but states this never lasted this long. Patient states meclizine is not helping. Patient states she feels like there are objects spinning around her. Patient's exam is unremarkable except for mid epigastric tenderness. There is no ataxia. Patient states she does have a history of an ulcer. CBC does show white count 17.8, hemoglobin 16.9. Coags are normal. UA is normal. Patient denies history of fever, chills, cough, chest pain, burning with urination. Patient denies any recent illnesses. Patient's EKG shows normal sinus rhythm. Patient was given fluids as well as Protonix and Valium. Patient reports improvement in her symptoms. It was discussed with patient that she needs to follow up with neurology. Patient is in agreement with this plan of care. Patient is waiting for a call back from her new neurologist. Case was discussed with Dr. Guerra. Patient is stable for discharge at this time. Strict return parameters were discussed with the patient she verbalized understanding. Patient will be sent home with trial of Valium for the vertigo as well as Zofran for nausea. - Lab Data Result diagrams: 02/26/19 15:05 02/26/19 15:05 Lab Results 02/26/19 02/26/19 02/26/19 Range/Units 15:05 15:05 15:05 WBC 17.8 H (3.8-10.6) k/uL RBC 5.87 H (3.80-5.40) m/uL Hgb 16.9 H (11.4-16.0) gm/dL Hct 49.3 H (34.0-46.0) % MCV 84.1 (80.0-100.0) fL MCH 28.8 (25.0-35.0) pg MCHC 34.2 (31.0-37.0) g/dL RDW 17.5 H (11.5-15.5) % Plt Count 288 (150-450) k/uL Neutrophils % 80 % Lymphocytes % 13 % Monocytes % 4 % Eosinophils % 1 % Basophils % 1 % Neutrophils # 14.3 H (1.3-7.7) k/uL Lymphocytes # 2.4 (1.0-4.8) k/uL Monocytes # 0.8 (0-1.0) k/uL Eosinophils # 0.1 (0-0.7) k/uL Basophils # 0.1 (0-0.2) k/uL Anisocytosis Slight PT 9.5 (9.0-12.0) sec INR 0.9 (<1.2) APTT 23.3 (22.0-30.0) sec Sodium 142 (137-145) mmol/L Potassium 4.7 (3.5-5.1) mmol/L Chloride 108 H (98-107) mmol/L Carbon Dioxide 18 L (22-30) mmol/L Anion Gap 16 mmol/L BUN 12 (7-17) mg/dL Creatinine 0.84 (0.52-1.04) mg/dL Est GFR (CKD-EPI)AfAm >90 (>60 ml/min/1.73 sqM) Est GFR (CKD-EPI)NonAf >90 (>60 ml/min/1.73 sqM) Glucose 99 (74-99) mg/dL Calcium 9.9 (8.4-10.2) mg/dL Total Bilirubin 0.8 (0.2-1.3) mg/dL AST 44 H (14-36) U/L ALT 42 (9-52) U/L Alkaline Phosphatase 143 H (38-126) U/L Total Protein 8.6 H (6.3-8.2) g/dL Albumin 4.7 (3.5-5.0) g/dL Urine Color Urine Appearance (Clear) Urine pH (5.0-8.0) Ur Specific [place] (1.001-1.035) Urine Protein (Negative) Urine Glucose (UA) (Negative) Urine Ketones (Negative) Urine Blood (Negative) Urine Nitrite (Negative) Urine Bilirubin (Negative) Urine Urobilinogen (<2.0) mg/dL Ur Leukocyte Esterase (Negative) Urine RBC (0-5) /hpf Urine WBC (0-5) /hpf Ur Squamous Epith Cells (0-4) /hpf Urine Mucus (None) /hpf 02/26/19 Range/Units 16:50 WBC (3.8-10.6) k/uL RBC (3.80-5.40) m/uL Hgb (11.4-16.0) gm/dL Hct (34.0-46.0) % MCV (80.0-100.0) fL MCH (25.0-35.0) pg MCHC (31.0-37.0) g/dL RDW (11.5-15.5) % Plt Count (150-450) k/uL Neutrophils % % Lymphocytes % % Monocytes % % Eosinophils % % Basophils % % Neutrophils # (1.3-7.7) k/uL Lymphocytes # (1.0-4.8) k/uL Monocytes # (0-1.0) k/uL Eosinophils # (0-0.7) k/uL Basophils # (0-0.2) k/uL Anisocytosis PT (9.0-12.0) sec INR (<1.2) APTT (22.0-30.0) sec Sodium (137-145) mmol/L Potassium (3.5-5.1) mmol/L Chloride (98-107) mmol/L Carbon Dioxide (22-30) mmol/L Anion Gap mmol/L BUN (7-17) mg/dL Creatinine (0.52-1.04) mg/dL Est GFR (CKD-EPI)AfAm (>60 ml/min/1.73 sqM) Est GFR (CKD-EPI)NonAf (>60 ml/min/1.73 sqM) Glucose (74-99) mg/dL Calcium (8.4-10.2) mg/dL Total Bilirubin (0.2-1.3) mg/dL AST (14-36) U/L ALT (9-52) U/L Alkaline Phosphatase (38-126) U/L Total Protein (6.3-8.2) g/dL Albumin (3.5-5.0) g/dL Urine Color Yellow Urine Appearance Clear (Clear) Urine pH 7.0 (5.0-8.0) Ur Specific [place] 1.011 (1.001-1.035) Urine Protein Negative (Negative) Urine Glucose (UA) Negative (Negative) Urine Ketones Negative (Negative) Urine Blood Negative (Negative) Urine Nitrite Negative (Negative) Urine Bilirubin Negative (Negative) Urine Urobilinogen <2.0 (<2.0) mg/dL Ur Leukocyte Esterase Moderate H (Negative) Urine RBC 2 (0-5) /hpf Urine WBC 5 (0-5) /hpf Ur Squamous Epith Cells 2 (0-4) /hpf Urine Mucus Rare H (None) /hpf Disposition Clinical Impression: Vertigo, Gastritis Disposition: HOME SELF-CARE Condition: Stable Instructions (If sedation given, give patient instructions): Vertigo (ED) Additional Instructions: Please return to the Emergency Department if symptoms worsen or any other concerns. Follow-up with neurology as discussed. Continue with Sultanaac for gastritis. Prescriptions: LORazepam [Ativan] 1 mg PO BID PRN 5 Days #10 tab PRN Reason: Vertigo Ondansetron Odt [Zofran Odt] 4 mg PO Q8HR PRN #10 tab PRN Reason: Nausea Is patient prescribed a controlled substance at d/c from ED?: No Referrals: Carlos Spencer MD [Primary Care Provider] - 1-2 days
[2019-02-26 16:11] LABS: Potassium 4.7 mmol/L (3.5-5.1)
[2019-02-26 16:49] LABS: INR 0.9 (<1.2); Partial Thromboplastin Time 23.3 sec (22.0-30.0); Prothrombin Time 9.5 sec (9.0-12.0)
[2019-02-26 17:34] LABS: Appearance,Urine Clear (Clear); Bilirubin,Urine Negative (Negative); Blood,Urine Negative (Negative); Color,Urine Yellow; Glucose,Urine (UA) Negative (Negative); Ketones,Urine Negative (Negative); Leukocyte Esterase,Urine Moderate (Negative); Mucus,Urine Rare /hpf; Nitrite,Urine Negative (Negative); Protein,Urine Negative (Negative); RBC,Urine 2 /hpf (0-5); Specific Gravity,Urine 1.011 (1.001-1.035); Squamous Epithelial Cell,Urine 2 /hpf (0-4); Urobilinogen,Urine <2.0 mg/dL (<2.0)
[2019-02-26 18:09] VITALS: BP 125/87; PULSE 95; TEMP 98.5
== END 2019-02-26 18:05 | disposition home or self-care (01) ==
LOC: EC 14:50
DX: K29.70 Gastritis, unspecified, without bleeding (principal); R42 Dizziness and giddiness; F41.9 Anxiety disorder, unspecified; F32.9 Major depressive disorder, single episode, unspecified; Z86.73 Personal history of transient ischemic attack (TIA), and cerebral infarction without residual deficits; Z79.02 Long term (current) use of antithrombotics/antiplatelets; Z79.899 Other long term (current) drug therapy
CPT/HCPCS: 36415; 93005; 80053; 85025; 85610; 85730; 81001; 99284; 96374; 96375 ×2; 96361 ×2; J2765; J3360; C9113

== ENCOUNTER 2019-03-02 04:20 | Emergency (ER) | payer OTHER ==
[2019-03-02 04:26] VITALS: BP 133/90; PULSE 94; RESP 18; TEMP 98.4
[2019-03-02] MEDS ORDERED: ONDANSETRON 4 MG/2 ML VIAL IVP STA (04:31)
--- NOTE | 2019-03-02 04:37 | ED ---
Abdominal Pain HPI - General Source: patient Mode of arrival: ambulatory Limitations: no limitations - History of Present Illness MD Complaint: abdominal pain Onset/Timin -: days(s) Location: RUQ Radiation: back Migration to: no migration Severity: moderate Quality: aching Consistency: constant Improves With: nothing Worsens With: nothing <Manny Cortez - Last Filed: 03/02/19 07:13> <Gary Santos - Last Filed: 03/02/19 08:27> - General Chief Complaint: Abdominal Pain Stated Complaint: Abd Pain Time Seen by Provider: 03/02/19 04:30 - History of Present Illness Initial Comments: Patient is 28-year-old woman complaining of right upper quadrant abdominal pain going on since Wednesday. She states it is sharp and radiates to her back. Has become severe tonight. She has not noted relieving factors. She believes that it was worse after she had eaten. She has had some coming nausea. No change in bowel movements or urination. (Manny Cortez) - Related Data Home Medications Medication Instructions Recorded Confirmed Clopidogrel [Plavix] 75 mg PO DAILY 07/03/16 03/02/19 Amoxicillin 875 mg PO Q12HR 03/02/19 03/02/19 Dextroamphetamine/Amphetamine 10 mg PO BID 03/02/19 03/02/19 [Adderall] Ranitidine HCl [Zantac] 150 mg PO BID 03/02/19 03/02/19 buPROPion HCL [Wellbutrin XL] 300 mg PO DAILY 03/02/19 03/02/19 clonazePAM [KlonoPIN] 0.5 mg PO BID PRN 03/02/19 03/02/19 Allergies Allergy/AdvReac Type Severity Reaction Status Date / Time No Known Allergies Allergy Verified 03/02/19 07:55 Review of Systems ROS Other: All systems not noted in ROS Statement are negative. <Manny Cortez - Last Filed: 03/02/19 07:13> ROS Other: All systems not noted in ROS Statement are negative. <Gary Santos - Last Filed: 03/02/19 08:27> ROS Statement: Those systems with pertinent positive or pertinent negative responses have been documented in the HPI. Past Medical History Past Medical History: Asthma, CVA/TIA History of Any Multi-Drug Resistant Organisms: None Reported Past Surgical History: No Surgical Hx Reported Past Anesthesia/Blood Transfusion Reactions: No Reported Reaction Past Psychological History: Anxiety, Depression Smoking Status: Never smoker Past Alcohol Use History: Occasional Past Drug Use History: None Reported - Past Family History Father Family Medical History: No Reported History Mother Family Medical History: AFIB, Hypertension <Manny Cortez - Last Filed: 03/02/19 07:13> General Exam Limitations: no limitations General appearance: alert, in no apparent distress Head exam: Present: atraumatic, normocephalic Eye exam: Present: normal appearance. Absent: scleral icterus, conjunctival injection ENT exam: Present: normal oropharynx Neck exam: Present: normal inspection, full ROM Respiratory exam: Present: normal lung sounds bilaterally. Absent: respiratory distress, wheezes, rales, rhonchi, stridor Cardiovascular Exam: Present: regular rate, normal rhythm, normal heart sounds. Absent: systolic murmur, diastolic murmur, rubs, gallop GI/Abdominal exam: Present: soft, tenderness (Mild right upper quadrant tenderness without rebound or guarding), normal bowel sounds. Absent: distended, guarding, rebound, rigid, mass, pulsatile mass, hernia Extremities exam: Present: normal inspection, normal capillary refill. Absent: pedal edema, calf tenderness Back exam: Present: normal inspection. Absent: CVA tenderness (R), CVA tenderness (L) Neurological exam: Present: alert Skin exam: Present: warm, dry, intact, normal color. Absent: rash <Manny Cortez - Last Filed: 03/02/19 07:13> Course Vital Signs 03/02/19 04:22 Temperature 98.4 F Pulse Rate 94 Respiratory 18 Rate Blood Pressure 133/90 O2 Sat by Pulse 100 Oximetry Medical Decision Making - Lab Data Result diagrams: 03/02/19 04:45 03/02/19 04:45 <Manny Cortez - Last Filed: 03/02/19 07:13> - Lab Data Result diagrams: 03/02/19 04:45 03/02/19 04:45 - Radiology Data Radiology results: report reviewed (Ultrasound shows gallstones or sludge without evidence of cholecystitis.) <Gary Santos - Last Filed: 03/02/19 08:27> - Medical Decision Making Patient reevaluated and resting comfortably sitting up in bed. Patient symptom free at this point. Patient and family updated on results and need for follow- up. (Gary Santos) - Lab Data Lab Results 03/02/19 03/02/19 03/02/19 Range/Units 04:45 04:45 05:53 WBC 11.9 H (3.8-10.6) k/uL RBC 5.36 (3.80-5.40) m/uL Hgb 15.0 (11.4-16.0) gm/dL Hct 44.2 (34.0-46.0) % MCV 82.3 (80.0-100.0) fL MCH 27.9 (25.0-35.0) pg MCHC 33.9 (31.0-37.0) g/dL RDW 13.7 (11.5-15.5) % Plt Count 331 (150-450) k/uL Neutrophils % 76 % Lymphocytes % 15 % Monocytes % 6 % Eosinophils % 1 % Basophils % 0 % Neutrophils # 9.0 H (1.3-7.7) k/uL Lymphocytes # 1.8 (1.0-4.8) k/uL Monocytes # 0.7 (0-1.0) k/uL Eosinophils # 0.1 (0-0.7) k/uL Basophils # 0.0 (0-0.2) k/uL Sodium 142 (137-145) mmol/L Potassium 3.6 (3.5-5.1) mmol/L Chloride 109 H (98-107) mmol/L Carbon Dioxide 20 L (22-30) mmol/L Anion Gap 13 mmol/L BUN 9 (7-17) mg/dL Creatinine 0.99 (0.52-1.04) mg/dL Est GFR (CKD-EPI)AfAm >90 (>60 ml/min/1.73 sqM) Est GFR (CKD-EPI)NonAf 78 (>60 ml/min/1.73 sqM) Glucose 118 H (74-99) mg/dL Calcium 9.8 (8.4-10.2) mg/dL Total Bilirubin 0.6 (0.2-1.3) mg/dL AST 21 (14-36) U/L ALT 35 (9-52) U/L Alkaline Phosphatase 116 (38-126) U/L Total Protein 7.5 (6.3-8.2) g/dL Albumin 4.3 (3.5-5.0) g/dL Amylase 57 (30-110) U/L Lipase 84 (23-300) U/L Urine Color Urine Appearance (Clear) Urine pH (5.0-8.0) Ur Specific [place] (1.001-1.035) Urine Protein (Negative) Urine Glucose (UA) (Negative) Urine Ketones (Negative) Urine Blood (Negative) Urine Nitrite (Negative) Urine Bilirubin (Negative) Urine Urobilinogen (<2.0) mg/dL Ur Leukocyte Esterase (Negative) Urine HCG, Qual Not Detected (Not Detectd) 03/02/19 Range/Units 05:53 WBC (3.8-10.6) k/uL RBC (3.80-5.40) m/uL Hgb (11.4-16.0) gm/dL Hct (34.0-46.0) % MCV (80.0-100.0) fL MCH (25.0-35.0) pg MCHC (31.0-37.0) g/dL RDW (11.5-15.5) % Plt Count (150-450) k/uL Neutrophils % % Lymphocytes % % Monocytes % % Eosinophils % % Basophils % % Neutrophils # (1.3-7.7) k/uL Lymphocytes # (1.0-4.8) k/uL Monocytes # (0-1.0) k/uL Eosinophils # (0-0.7) k/uL Basophils # (0-0.2) k/uL Sodium (137-145) mmol/L Potassium (3.5-5.1) mmol/L Chloride (98-107) mmol/L Carbon Dioxide (22-30) mmol/L Anion Gap mmol/L BUN (7-17) mg/dL Creatinine (0.52-1.04) mg/dL Est GFR (CKD-EPI)AfAm (>60 ml/min/1.73 sqM) Est GFR (CKD-EPI)NonAf (>60 ml/min/1.73 sqM) Glucose (74-99) mg/dL Calcium (8.4-10.2) mg/dL Total Bilirubin (0.2-1.3) mg/dL AST (14-36) U/L ALT (9-52) U/L Alkaline Phosphatase (38-126) U/L Total Protein (6.3-8.2) g/dL Albumin (3.5-5.0) g/dL Amylase (30-110) U/L Lipase (23-300) U/L Urine Color Yellow Urine Appearance Clear (Clear) Urine pH 6.5 (5.0-8.0) Ur Specific [place] 1.009 (1.001-1.035) Urine Protein Negative (Negative) Urine Glucose (UA) Negative (Negative) Urine Ketones Negative (Negative) Urine Blood Negative (Negative) Urine Nitrite Negative (Negative) Urine Bilirubin Negative (Negative) Urine Urobilinogen <2.0 (<2.0) mg/dL Ur Leukocyte Esterase Negative (Negative) Urine HCG, Qual (Not Detectd) Disposition <Manny Cortez - Last Filed: 03/02/19 07:13> Is patient prescribed a controlled substance at d/c from ED?: No Time of Disposition: 08:27 <Gary Santos - Last Filed: 03/02/19 08:27> Clinical Impression: Cholelithiasis Disposition: HOME SELF-CARE Condition: Stable Instructions (If sedation given, give patient instructions): Gallstones (ED) Additional Instructions: Please follow-up with primary care physician and general surgeon in the next couple of days for recheck. Return for increased pain, vomiting, fevers, worsening symptoms or other concerns. Referrals: Carlos Spencer MD [Primary Care Provider] - 1-2 days Yissel Doshi MD [STAFF PHYSICIAN] - 1-2 days
[2019-03-02 04:56] LABS: Basophils % (A) 0 %; Eosinophils # (A) 0.1 k/uL (0-0.7); Eosinophils % (A) 1 %; HCT 44.2 % (34.0-46.0); Lymphocytes # (A) 1.8 k/uL (1.0-4.8); Lymphocytes % (A) 15 %; MCH 27.9 pg (25.0-35.0); MCHC 33.9 g/dL (31.0-37.0); MCV 82.3 fL (80.0-100.0); Mean Platelet Volume 6.7; Monocytes # (A) 0.7 k/uL (0-1.0); Monocytes % (A) 6 %; Neutrophils % (A) 76 %; Platelet Count 331 k/uL (150-450); RBC 5.36 m/uL (3.80-5.40); RDW 13.7 % (11.5-15.5); WBC 11.9 k/uL (3.8-10.6)
[2019-03-02 05:04] LABS: ALT 35 U/L (9-52); AST 21 U/L (14-36); African American GFR (CKD) >90 (>60 ml/min/1.73 sqM); Albumin 4.3 g/dL (3.5-5.0); Alkaline Phosphatase 116 U/L (38-126); Amylase 57 U/L (30-110); Anion Gap 13 mmol/L; Blood Urea Nitrogen 9 mg/dL (7-17); Calcium 9.8 mg/dL (8.4-10.2); Carbon Dioxide 20 mmol/L (22-30); Chloride 109 mmol/L (98-107); Glucose 118 mg/dL (74-99); Potassium 3.6 mmol/L (3.5-5.1); Sodium 142 mmol/L (137-145); Total Bilirubin 0.6 mg/dL (0.2-1.3); Total Protein 7.5 g/dL (6.3-8.2)
[2019-03-02 06:03] LABS: Appearance,Urine Clear (Clear); Bilirubin,Urine Negative (Negative); Blood,Urine Negative (Negative); Color,Urine Yellow; Glucose,Urine (UA) Negative (Negative); Ketones,Urine Negative (Negative); Leukocyte Esterase,Urine Negative (Negative); Nitrite,Urine Negative (Negative); PH, Urine 6.5 (5.0-8.0); Protein,Urine Negative (Negative); Specific Gravity,Urine 1.009 (1.001-1.035); Urobilinogen,Urine <2.0 mg/dL (<2.0)
--- NOTE | 2019-03-02 08:09 | US ---
EXAMINATION TYPE: US abdomen limited DATE OF EXAM: 03/02/2019 COMPARISON: US 2017 CLINICAL HISTORY: Attention RUQ, biliary colic pain. RUQ pain x 2 days, worse this morning. EXAM MEASUREMENTS: Liver Length: 15.6 cm Gallbladder Wall: 0.2 cm CBD: 0.5 cm Right Kidney: 10.2 x 5.4 x 4.4 cm Pancreas: Obscured by bowel gas Liver: Partially Obscured by overlying bowel gas, ? increased echogenicity Gallbladder: Large in size = 11.2 x 4.1 cm, filled with sludge and shadowing, echogenic foci . Evidence for sonographic Quinn's sign: No CBD: wnl Right Kidney: wnl Dependent small stones and/or sludge. No pericholecystic fluid or abnormal gallbladder wall thickenin g. Negative sonographic Quinn's sign. Visualized liver heterogeneously hyperechoic suggesting diffus e fatty infiltration. IMPRESSION: Probable fatty infiltration of liver. Small gallstones and/or gallbladder sludge without secondary ultrasound evidence for acute cholecystitis.
[2019-03-02] MEDS ORDERED: ACET/COD 300 MG/30 MG STARTER PACK 6 TAB BTL PO STA (08:27)
== END 2019-03-02 08:36 | disposition home or self-care (01) ==
LOC: EC 04:20
DX: K80.20 Calculus of gallbladder without cholecystitis without obstruction (principal); F41.9 Anxiety disorder, unspecified; F32.9 Major depressive disorder, single episode, unspecified; Z79.02 Long term (current) use of antithrombotics/antiplatelets; Z79.899 Other long term (current) drug therapy; Z86.73 Personal history of transient ischemic attack (TIA), and cerebral infarction without residual deficits
CPT/HCPCS: 36415; 80053; 82150; 83690; 85025; 81003; 81025; 76705; 99284; 96374; J2405

== ENCOUNTER 2019-03-18 14:34 | Inpatient (IN) | payer OTHER ==
[2019-03-18] MEDS ORDERED: SODIUM CHLORIDE 0.9% 1,000 ML IV STA (14:53)
[2019-03-18] MEDS ORDERED: ONDANSETRON ODT 4 MG TAB PO STA (15:03)
[2019-03-18 15:24] LABS: Basophils # (A) 0.1 k/uL (0-0.2); Basophils % (A) 1 %; Eosinophils # (A) 0.1 k/uL (0-0.7); Eosinophils % (A) 1 %; HCT 45.1 % (34.0-46.0); HGB 15.3 gm/dL (11.4-16.0); Lymphocytes # (A) 2.1 k/uL (1.0-4.8); Lymphocytes % (A) 21 %; MCH 27.3 pg (25.0-35.0); MCV 80.2 fL (80.0-100.0); Mean Platelet Volume 6.9; Monocytes # (A) 0.6 k/uL (0-1.0); Monocytes % (A) 5 %; Neutrophils # (A) 7.2 k/uL (1.3-7.7); Neutrophils % (A) 71 %; Platelet Count 363 k/uL (150-450); RBC 5.62 m/uL (3.80-5.40); RDW 13.2 % (11.5-15.5); WBC 10.2 k/uL (3.8-10.6)
--- NOTE | 2019-03-18 15:37 | ED ---
General Adult HPI <Gary Santos - Last Filed: 03/18/19 16:45> - General Source: patient, family, RN notes reviewed, old records reviewed Mode of arrival: ambulatory Limitations: no limitations <Ramon Carrera - Last Filed: 03/18/19 17:00> - General Chief complaint: Abdominal Pain Stated complaint: Gallstones Time Seen by Provider: 03/18/19 14:53 - History of Present Illness Initial comments: 28-year-old male patient passed no history of asthma and reported CVA for which she takes Plavix menses chief complaint of right upper quadrant pain. Patient reports that she was seen on 03/02 when she had a right upper quadrant ultrasound which diagnosed with gallstones. Patient ports that since she has had right upper quadrant pain and nausea. Patient works that she was seen by surgeon Dr. Cristobal on Wednesday who reportedly told the patient that she believes that she is to have her gallbladder removed, however she is waiting for clearance to remove Plavix prior to surgery. Patient presents today for chief complaint of continued pain. Denies any other complaints. Systemic: Pt denies fatigue, fever/chills, rash. Pt denies weakness, night sweats, weight loss. Neuro: Pt denies headache, visual disturbances, syncope or pre-syncope. HEENT: Pt denies ocular discharge or irritation, otalgia, rhinorrhea, pharyngitis or notable lymphadenopathy. Cardiopulmonary: Pt denies chest pain, SOB, heart palpitations, dyspnea on exertion. Abdominal/GI: Pt denies abdominal pain, n/v/d. : Pt denies dysuria, burning w/ urination, frequency/urgency. Denies new onset urinary or bowel incontinence. MSK: Pt denies myalgia, loss of strength or function in extremities. Neuro: Pt denies new onset weakness, paresthesias. (Ramon Carrera) - Related Data Home Medications Medication Instructions Recorded Confirmed Clopidogrel [Plavix] 75 mg PO DAILY 07/03/16 03/18/19 Dextroamphetamine/Amphetamine 10 mg PO BID 03/02/19 03/18/19 [Adderall] Ranitidine HCl [Zantac] 150 mg PO BID 03/02/19 03/18/19 buPROPion HCL [Wellbutrin XL] 300 mg PO DAILY 03/02/19 03/18/19 clonazePAM [KlonoPIN] 0.5 mg PO BID PRN 03/02/19 03/18/19 Allergies Allergy/AdvReac Type Severity Reaction Status Date / Time No Known Allergies Allergy Verified 03/18/19 16:55 Review of Systems ROS Other: All systems not noted in ROS Statement are negative. <TomGary - Last Filed: 03/18/19 16:45> ROS Other: All systems not noted in ROS Statement are negative. <Ramon Carrera - Last Filed: 03/18/19 17:00> ROS Statement: Those systems with pertinent positive or pertinent negative responses have been documented in the HPI. Past Medical History Past Medical History: Asthma, CVA/TIA History of Any Multi-Drug Resistant Organisms: None Reported Past Surgical History: No Surgical Hx Reported Past Anesthesia/Blood Transfusion Reactions: No Reported Reaction Past Psychological History: Anxiety, Depression Smoking Status: Never smoker Past Alcohol Use History: Occasional Past Drug Use History: None Reported - Past Family History Father Family Medical History: No Reported History Mother Family Medical History: AFIB, Hypertension <Ramon Carrera - Last Filed: 03/18/19 17:00> General Exam Limitations: no limitations <Ramon Carrera - Last Filed: 03/18/19 17:00> - General Exam Comments Initial Comments: Constitutional: NAD, AOX3, Pt has pleasant affect. HEENT: NC/AT, trachea midline, neck supple, no lymphadenopathy. Posterior pharynx non erythematous, without exudates. External ears appear normal, without discharge. Mucous membranes moist. Eyes PERRLA, EOM intact. There is no scleral icterus. No pallor noted. Cardiopulmonary: RRR, no murmurs, rubs or gallops, no JVD noted. Lungs CTAB in anterior and posterior nguyen. No peripheral edema. Abdominal exam: Abdomen soft and non-distended. Abdomen mildly tender to palpation in right upper quadrant, Quinn sign positive. No other areas of abdominal tenderness. Bowel sounds active in LLQ. No hepatosplenomegaly. No ecchymosis Neuro: CN II-XII grossly intact. No nuchal rigidity. No raccon eyes, no duckworth sign, no hemotympanum. No cervical spinal tenderness. MSK: No posterior calf tenderness bilaterally, homans sign negative bilaterally. Posterior tibialis and radial pulse +2 bilaterally. Sensation intact in upper and lower extremities. Full active ROM in upper and lower extremities, 5/5 stregnth. (Ramon Carrera) Course Vital Signs 03/18/19 03/18/19 03/18/19 14:39 15:15 16:10 Temperature 97.8 F Pulse Rate 99 Respiratory 18 16 18 Rate Blood Pressure 131/86 O2 Sat by Pulse 97 Oximetry Medical Decision Making - Lab Data Result diagrams: 03/18/19 15:10 03/18/19 15:10 <Gary Santos - Last Filed: 03/18/19 16:45> - Lab Data Result diagrams: 03/18/19 15:10 03/18/19 15:10 <Ramon Carrera - Last Filed: 03/18/19 17:00> - Medical Decision Making Case discussed with Dr. Mata who is familiar with this patient. She will admit. She recommends antibiotics and holding Plavix. (Gary Santos) 20-year-old female patient past history of biliary colic since ED with right upper quadrant pain for approximately 3 weeks. Patient was recently evaluated by Dr. Mata on Wednesday. Patient reports the symptoms are continuing. Patient vital signs stable, afebrile. Physical exam displayed upper quadrant tenderness. Laboratory investigations overall noncompressive. Ultrasound displayed gallbladder sludge, and cholelithiasis. Conjunctivae correlation r ecommended for acute cholecystitis. Case discussed with attending physician Dr. Santos to discuss patient with Dr. Cristobal who recommended to treat her acute cholecystitis. Patient be admitted. (Ramon Carrera) - Lab Data Lab Results 03/18/19 03/18/19 03/18/19 Range/Units 15:10 15:10 15:10 WBC 10.2 (3.8-10.6) k/uL RBC 5.62 H (3.80-5.40) m/uL Hgb 15.3 (11.4-16.0) gm/dL Hct 45.1 (34.0-46.0) % MCV 80.2 (80.0-100.0) fL MCH 27.3 (25.0-35.0) pg MCHC 34.0 (31.0-37.0) g/dL RDW 13.2 (11.5-15.5) % Plt Count 363 (150-450) k/uL Neutrophils % 71 % Lymphocytes % 21 % Monocytes % 5 % Eosinophils % 1 % Basophils % 1 % Neutrophils # 7.2 (1.3-7.7) k/uL Lymphocytes # 2.1 (1.0-4.8) k/uL Monocytes # 0.6 (0-1.0) k/uL Eosinophils # 0.1 (0-0.7) k/uL Basophils # 0.1 (0-0.2) k/uL Sodium 145 (137-145) mmol/L Potassium 3.7 (3.5-5.1) mmol/L Chloride 111 H (98-107) mmol/L Carbon Dioxide 18 L (22-30) mmol/L Anion Gap 16 mmol/L BUN 6 L (7-17) mg/dL Creatinine 0.95 (0.52-1.04) mg/dL Est GFR (CKD-EPI)AfAm >90 (>60 ml/min/1.73 sqM) Est GFR (CKD-EPI)NonAf 82 (>60 ml/min/1.73 sqM) Glucose 110 H (74-99) mg/dL Plasma Lactic Acid Jason 1.5 (0.7-2.0) mmol/L Calcium 10.4 H (8.4-10.2) mg/dL Total Bilirubin 0.6 (0.2-1.3) mg/dL AST 24 (14-36) U/L ALT 41 (9-52) U/L Alkaline Phosphatase 146 H (38-126) U/L Total Protein 8.1 (6.3-8.2) g/dL Albumin 4.5 (3.5-5.0) g/dL Lipase 84 (23-300) U/L Urine Color Urine Appearance (Clear) Urine pH (5.0-8.0) Ur Specific [place] (1.001-1.035) Urine Protein (Negative) Urine Glucose (UA) (Negative) Urine Ketones (Negative) Urine Blood (Negative) Urine Nitrite (Negative) Urine Bilirubin (Negative) Urine Urobilinogen (<2.0) mg/dL Ur Leukocyte Esterase (Negative) Urine WBC (0-5) /hpf Ur Squamous Epith Cells (0-4) /hpf Urine Bacteria (None) /hpf Urine HCG, Qual (Not Detectd) 03/18/19 03/18/19 Range/Units 16:00 16:00 WBC (3.8-10.6) k/uL RBC (3.80-5.40) m/uL Hgb (11.4-16.0) gm/dL Hct (34.0-46.0) % MCV (80.0-100.0) fL MCH (25.0-35.0) pg MCHC (31.0-37.0) g/dL RDW (11.5-15.5) % Plt Count (150-450) k/uL Neutrophils % % Lymphocytes % % Monocytes % % Eosinophils % % Basophils % % Neutrophils # (1.3-7.7) k/uL Lymphocytes # (1.0-4.8) k/uL Monocytes # (0-1.0) k/uL Eosinophils # (0-0.7) k/uL Basophils # (0-0.2) k/uL Sodium (137-145) mmol/L Potassium (3.5-5.1) mmol/L Chloride (98-107) mmol/L Carbon Dioxide (22-30) mmol/L Anion Gap mmol/L BUN (7-17) mg/dL Creatinine (0.52-1.04) mg/dL Est GFR (CKD-EPI)AfAm (>60 ml/min/1.73 sqM) Est GFR (CKD-EPI)NonAf (>60 ml/min/1.73 sqM) Glucose (74-99) mg/dL Plasma Lactic Acid Jason (0.7-2.0) mmol/L Calcium (8.4-10.2) mg/dL Total Bilirubin (0.2-1.3) mg/dL AST (14-36) U/L ALT (9-52) U/L Alkaline Phosphatase (38-126) U/L Total Protein (6.3-8.2) g/dL Albumin (3.5-5.0) g/dL Lipase (23-300) U/L Urine Color Light Yellow Urine Appearance Clear (Clear) Urine pH 7.5 (5.0-8.0) Ur Specific [place] 1.002 (1.001-1.035) Urine Protein Negative (Negative) Urine Glucose (UA) Negative (Negative) Urine Ketones Trace H (Negative) Urine Blood Negative (Negative) Urine Nitrite Negative (Negative) Urine Bilirubin Negative (Negative) Urine Urobilinogen <2.0 (<2.0) mg/dL Ur Leukocyte Esterase Trace H (Negative) Urine WBC 3 (0-5) /hpf Ur Squamous Epith Cells 1 (0-4) /hpf Urine Bacteria Rare H (None) /hpf Urine HCG, Qual Not Detected (Not Detectd) Disposition <Gary Santos - Last Filed: 03/18/19 16:45> Is patient prescribed a controlled substance at d/c from ED?: No <Ramon Carrera - Last Filed: 03/18/19 17:00> Clinical Impression: Acute cholecystitis Disposition: ADMITTED IP TO THIS HOSP Condition: Serious Referrals: Carlos Spencer MD [Primary Care Provider] - 1-2 days
[2019-03-18 15:52] LABS: ALT 41 U/L (9-52); AST 24 U/L (14-36); African American GFR (CKD) >90 (>60 ml/min/1.73 sqM); Albumin 4.5 g/dL (3.5-5.0); Alkaline Phosphatase 146 U/L (38-126); Anion Gap 16 mmol/L; Blood Urea Nitrogen 6 mg/dL (7-17); Calcium 10.4 mg/dL (8.4-10.2); Carbon Dioxide 18 mmol/L (22-30); Chloride 111 mmol/L (98-107); Glucose 110 mg/dL (74-99); Potassium 3.7 mmol/L (3.5-5.1); Sodium 145 mmol/L (137-145); Total Bilirubin 0.6 mg/dL (0.2-1.3); Total Protein 8.1 g/dL (6.3-8.2)
--- NOTE | 2019-03-18 16:10 | US ---
EXAMINATION TYPE: US gallbladder DATE OF EXAM: 03/18/2019 COMPARISON: US 2019 CLINICAL HISTORY: pain hx gallstones . Abdomen pain and nausea x 3 weeks, cholelithiasis seen on prev ious ultrasound EXAM MEASUREMENTS: Liver Length: 15.5 cm Gallbladder Wall: 0.3 cm CBD: 0.3 cm Right Kidney: 9.5 x 4.7 x 4.5 cm Difficult and limited study due to patient body habitus Pancreas: obscured by overlying midline bowel gas Liver: wnl Gallbladder: hydropic, filled with sludge and multiple echogenic foci, wall measures in upper limits of normal Evidence for sonographic Quinn's sign: yes CBD: visualized portions wnl, limited by overlying bowel gas Right Kidney: visualized portions wnl, limited by overlying bowel gas IMPRESSION: 1. Cholelithiasis and gallbladder sludge. 2. Clinical correlation recommended for acute cholecystitis.
[2019-03-18 16:38] LABS: Appearance,Urine Clear (Clear); Bacteria,Urine Rare /hpf; Bilirubin,Urine Negative (Negative); Blood,Urine Negative (Negative); Color,Urine Light Yellow; Glucose,Urine (UA) Negative (Negative); Ketones,Urine Trace (Negative); Leukocyte Esterase,Urine Trace (Negative); Nitrite,Urine Negative (Negative); PH, Urine 7.5 (5.0-8.0); Protein,Urine Negative (Negative); Specific Gravity,Urine 1.002 (1.001-1.035); Squamous Epithelial Cell,Urine 1 /hpf (0-4); Urobilinogen,Urine <2.0 mg/dL (<2.0); WBC,Urine 3 /hpf (0-5)
[2019-03-18] MEDS ORDERED: HYDROmorphone 1 MG/ML 1 ML SYRINGE IVP PRN (16:49)
[2019-03-18] MEDS ORDERED: HYDROmorphone 0.5 MG/0.5 ML SYRINGE IVP PRN (16:49)
[2019-03-18] MEDS ORDERED: NALOXONE 0.4 MG/ML 1 ML VIAL IV PRN (16:49)
[2019-03-18] MEDS: SODIUM CHLORIDE 0.9% 1,000 ML IV SCH (19:15)
[2019-03-18] MEDS: PIPERACILLIN-TAZOBACTAM 3.375 GM in SODIUM CHLORIDE 0.9% 100 ML IVPB SCH (19:18)
[2019-03-18] MEDS ORDERED: clonazePAM 0.5 MG TAB PO PRN (20:56)
[2019-03-19] MEDS: PIPERACILLIN-TAZOBACTAM 3.375 GM in SODIUM CHLORIDE 0.9% 100 ML IVPB SCH ×4 (01:38→23:56)
[2019-03-19] MEDS: SODIUM CHLORIDE 0.9% 1,000 ML IV SCH ×4 (05:47→20:59)
[2019-03-19 06:55] LABS: Basophils # (A) 0.1 k/uL (0-0.2); Basophils % (A) 0 %; Eosinophils # (A) 0.1 k/uL (0-0.7); Eosinophils % (A) 1 %; HCT 42.1 % (34.0-46.0); HGB 14.1 gm/dL (11.4-16.0); Lymphocytes # (A) 1.5 k/uL (1.0-4.8); Lymphocytes % (A) 13 %; MCH 27.9 pg (25.0-35.0); MCHC 33.4 g/dL (31.0-37.0); MCV 83.4 fL (80.0-100.0); Mean Platelet Volume 6.8; Monocytes # (A) 0.7 k/uL (0-1.0); Monocytes % (A) 6 %; Neutrophils % (A) 78 %; Platelet Count 296 k/uL (150-450); RBC 5.05 m/uL (3.80-5.40); RDW 13.4 % (11.5-15.5); WBC 11.6 k/uL (3.8-10.6)
[2019-03-19 07:12] LABS: Albumin 3.6 g/dL (3.5-5.0); Calcium 9.2 mg/dL (8.4-10.2); Potassium 3.9 mmol/L (3.5-5.1); Total Bilirubin 1.5 mg/dL (0.2-1.3); Total Protein 6.5 g/dL (6.3-8.2)
[2019-03-19] MEDS ORDERED: ONDANSETRON 4 MG/2 ML VIAL IVP PRN (08:49)
[2019-03-19] MEDS ORDERED: LORazepam 2 MG/ML INJ IV PRN (08:51)
[2019-03-19] MEDS ORDERED: PANTOPRAZOLE 40 MG/10 ML VIAL IV SCH (09:00)
[2019-03-19] MEDS: METOCLOPRAMIDE 5 MG/ML 2 ML VIAL IVP SCH ×4 (09:17→23:56)
[2019-03-19] MEDS ORDERED: ENOXAPARIN 40 MG/0.4 ML SYRINGE SQ SCH (11:00)
[2019-03-19] MEDS ORDERED: FAMOTIDINE 20 MG TAB PO SCH (11:00)
[2019-03-19] MEDS ORDERED: buPROPion XL 300 MG TAB.ER.24H PO SCH (11:00)
[2019-03-19] MEDS ORDERED: CYANOCOBALAMIN 500 MCG TAB PO SCH (11:00)
--- NOTE | 2019-03-19 13:52 | P.GSHP ---
History of Present Illness H&P Date: 03/19/19 CHIEF COMPLAINT: Abdominal pain HISTORY OF PRESENT ILLNESS: The patient is a 28 year old female who comes in with recurrent right upper quadrant abdominal pain with intractable nausea and vomiting. Her abdominal pain has become moderate to severe. Her family is at bedside. Her pain grew worse in the last 2 to 3 days after having crackers. She takes Plavix for history of strokes for unknown etiology 4 years ago. Clinical findings are consistent with acute cholecystitis hence her admission. PAST MEDICAL HISTORY: See list. PAST SURGICAL HISTORY: See list. MEDICATIONS: See list. ALLERGIES: See list. SOCIAL HISTORY: No illicit drug use FAMILY HISTORY: No reports of Crohn's disease or inflammatory bowel disease REVIEW OF ORGAN SYSTEMS: CONSTITUTIONAL: No fevers or chills. No recent weight loss. EYES: Denies any trouble with vision. No glasses. HEENT: No difficulties with hearing. No nosebleeds. No difficulty swallowing. RESPIRATORY: Denies pneumonia. Denies any troubles with breathing or dyspnea on exertion. CARDIOVASCULAR: Denies any chest pain, palpitations, or recent heart attacks. GASTROINTESTINAL: Has fatty food intolerance. Has change in bowel habits and gas bloat. GENITOURINARY: Denies any blood in urine or increased urinary frequency. NEUROLOGICAL: Denies any numbness or tingling along the distal extremities. No seizure disorders or headaches. Has history of strokes. MUSCULOSKELETAL: Has back pain, stiffness or joint arthritis. SKIN: No current skin cancer. No rash. PSYCHIATRIC: Has depression. Has anxiety. ENDOCRINE: Denies current thyroid disorders. Denies any blood sugar glucose intolerance. HEME/LYMPHATIC: Denies any lumps and bumps around the neck. No recent deep venous thrombosis. ALLERGY/IMMUNOLOGY: No immunoglobulin therapy. No immune deficiencies. BREAST: Denies current breast lumps, pain or nipple discharge. PHYSICAL EXAM: VITALS: Reviewed CONSTITUTIONAL: Well developed and in no acute distress. EYES: Conjuctivae without sclera icterus. Pupils are equally round and reactive to light. Extraocular movements grossly intact. HEAD, EARS, NOSE, THROAT: Moist buccal mucosa. Head is atraumatic, normocephalic. Hears conversational speech. No nasal drainage. NECK: Supple. No JV distention. No thyroidomegaly. RESPIRATORY: Non-labored respirations and equal bilateral excursions. No gross wheezes. CARDIOVASCULAR: Regular rate and rhythm. Extremities without moderate edema. Palpable 2+ radial pulses. ABDOMEN: No hepatomegaly. Soft. Nondistended. Right upper quadrant tenderness LYMPH: No neck lymphadenopathy. No axillary lymphadenopathy. MUSCULOSKELETAL: Nail and fingers with good capillary refill. SKIN: Warm and well perfused with good skin turgor. NEUROLOGIC: Cranial nerves I through XII grossly intact. Sensation upper and extremities intact. No focal or lateralizing signs. PSYCH: Tearful. Alert and oriented to person, place and time. CLINCAL LABS: Reviewed WBC increased from 10.2 to 11.6. Total bilirubin elevated from 0.6 to 1.5. AST elevated 24 to 189, ALT up from 41 to 150, Alk Phos elevated to 146. LABS: LFTS are now elevated with elevated bilirubin levels RADIOLOGY: Report reviewed with gallbladder wall 0.3 cm IMAGING: Independently reviewed with US gallbladder independently reviewed with gallstones and sludge ASSESSMENT: 1. Acute cholecystitis 2. Choledocholithiasis, new PLAN: 1. Full inpatient admission for new choledocholithiasis with acute cholecystitis 2. Stop Plavix 3. Possible ERCP should total bilirubin continues to increase 4. Medical reconciliation performed with majority of home medications held with severity of her nausea 5. Ativan for severe anxiety 6. DVT prophylaxis with ambulation and SCDs for now 7. Hold Lovenox with recent history of Plavix use as this increases risk for procedural bleeding. Thank you for this kind consultation. Past Medical History Past Medical History: Asthma, CVA/TIA, GERD/Reflux History of Any Multi-Drug Resistant Organisms: None Reported Past Surgical History: No Surgical Hx Reported Past Anesthesia/Blood Transfusion Reactions: No Reported Reaction Past Psychological History: Anxiety, Depression Smoking Status: Never smoker Past Alcohol Use History: Occasional Past Drug Use History: None Reported - Past Family History Father Family Medical History: No Reported History Mother Family Medical History: AFIB, Hypertension Medications and Allergies Home Medications Medication Instructions Recorded Confirmed Type Clopidogrel [Plavix] 75 mg PO DAILY 07/03/16 03/18/19 History Dextroamphetamine/Amphetamine 10 mg PO BID 03/02/19 03/18/19 History [Adderall] Ranitidine HCl [Zantac] 150 mg PO BID 03/02/19 03/18/19 History buPROPion HCL [Wellbutrin XL] 300 mg PO DAILY 03/02/19 03/18/19 History clonazePAM [KlonoPIN] 0.5 mg PO BID PRN 03/02/19 03/18/19 History Cholecalciferol (Vitamin D3) 2,000 mg PO DAILY 03/18/19 03/18/19 History [Vitamin D3] Cyanocobalamin (Vitamin B-12) 1,000 mcg PO DAILY 03/18/19 03/18/19 History [Vitamin B-12] Allergies Allergy/AdvReac Type Severity Reaction Status Date / Time No Known Allergies Allergy Verified 03/18/19 16:55 Surgical - Exam Vital Signs Temp Pulse Resp BP Pulse Ox 97.8 F 99 18 131/86 97 03/18/19 14:39 03/18/19 14:39 03/18/19 14:39 03/18/19 14:39 03/18/19 14:39 Results - Labs 03/19/19 06:11 03/19/19 06:11 Abnormal Lab Results - Last 24 Hours (Table) 03/18/19 03/18/19 03/18/19 Range/Units 15:10 15:10 16:00 WBC (3.8-10.6) k/uL RBC 5.62 H (3.80-5.40) m/uL Neutrophils # (1.3-7.7) k/uL Chloride 111 H (98-107) mmol/L Carbon Dioxide 18 L (22-30) mmol/L BUN 6 L (7-17) mg/dL Glucose 110 H (74-99) mg/dL Calcium 10.4 H (8.4-10.2) mg/dL Total Bilirubin (0.2-1.3) mg/dL AST (14-36) U/L ALT (9-52) U/L Alkaline Phosphatase 146 H (38-126) U/L Urine Ketones Trace H (Negative) Ur Leukocyte Esterase Trace H (Negative) Urine Bacteria Rare H (None) /hpf 03/19/19 03/19/19 Range/Units 06:11 06:11 WBC 11.6 H (3.8-10.6) k/uL RBC (3.80-5.40) m/uL Neutrophils # 9.0 H (1.3-7.7) k/uL Chloride 112 H (98-107) mmol/L Carbon Dioxide 21 L (22-30) mmol/L BUN 6 L (7-17) mg/dL Glucose 111 H (74-99) mg/dL Calcium (8.4-10.2) mg/dL Total Bilirubin 1.5 H (0.2-1.3) mg/dL AST 189 H (14-36) U/L ALT 150 H (9-52) U/L Alkaline Phosphatase 146 H (38-126) U/L Urine Ketones (Negative) Ur Leukocyte Esterase (Negative) Urine Bacteria (None) /hpf Diabetes panel 03/18/19 03/19/19 Range/Units 15:10 06:11 Sodium 145 144 (137-145) mmol/L Potassium 3.7 3.9 (3.5-5.1) mmol/L Chloride 111 H 112 H (98-107) mmol/L Carbon Dioxide 18 L 21 L (22-30) mmol/L BUN 6 L 6 L (7-17) mg/dL Creatinine 0.95 1.04 (0.52-1.04) mg/dL Glucose 110 H 111 H (74-99) mg/dL Calcium 10.4 H 9.2 (8.4-10.2) mg/dL AST 24 189 H (14-36) U/L ALT 41 150 H (9-52) U/L Alkaline Phosphatase 146 H 146 H (38-126) U/L Total Protein 8.1 6.5 (6.3-8.2) g/dL Albumin 4.5 3.6 (3.5-5.0) g/dL Calcium panel 03/18/19 03/19/19 Range/Units 15:10 06:11 Calcium 10.4 H 9.2 (8.4-10.2) mg/dL Albumin 4.5 3.6 (3.5-5.0) g/dL Pituitary panel 03/18/19 03/19/19 Range/Units 15:10 06:11 Sodium 145 144 (137-145) mmol/L Potassium 3.7 3.9 (3.5-5.1) mmol/L Chloride 111 H 112 H (98-107) mmol/L Carbon Dioxide 18 L 21 L (22-30) mmol/L BUN 6 L 6 L (7-17) mg/dL Creatinine 0.95 1.04 (0.52-1.04) mg/dL Glucose 110 H 111 H (74-99) mg/dL Calcium 10.4 H 9.2 (8.4-10.2) mg/dL Adrenal panel 03/18/19 03/19/19 Range/Units 15:10 06:11 Sodium 145 144 (137-145) mmol/L Potassium 3.7 3.9 (3.5-5.1) mmol/L Chloride 111 H 112 H (98-107) mmol/L Carbon Dioxide 18 L 21 L (22-30) mmol/L BUN 6 L 6 L (7-17) mg/dL Creatinine 0.95 1.04 (0.52-1.04) mg/dL Glucose 110 H 111 H (74-99) mg/dL Calcium 10.4 H 9.2 (8.4-10.2) mg/dL Total Bilirubin 0.6 1.5 H (0.2-1.3) mg/dL AST 24 189 H (14-36) U/L ALT 41 150 H (9-52) U/L Alkaline Phosphatase 146 H 146 H (38-126) U/L Total Protein 8.1 6.5 (6.3-8.2) g/dL Albumin 4.5 3.6 (3.5-5.0) g/dL Assessment and Plan (1) Acute cholecystitis Current Visit: Yes Status: Acute Code(s): K81.0 - ACUTE CHOLECYSTITIS SNOMED Code(s): 73756948 (2) Choledocholithiasis with acute cholecystitis Current Visit: Yes Status: Acute Code(s): K80.42 - CALCULUS OF BILE DUCT W ACUTE CHOLECYSTITIS W/O OBSTRUCTION SNOMED Code(s): 70242685 (3) Elevated liver enzymes Current Visit: Yes Status: Acute Code(s): R74.8 - ABNORMAL LEVELS OF OTHER SERUM ENZYMES SNOMED Code(s): 572397252 (4) Right upper quadrant abdominal pain Current Visit: Yes Status: Acute Code(s): R10.11 - RIGHT UPPER QUADRANT PAIN SNOMED Code(s): 223249412 (5) Hypertension Current Visit: No Status: Acute Code(s): I10 - ESSENTIAL (PRIMARY) HYPERTENSION SNOMED Code(s): 67125887 (6) Transient cerebral ischemia Current Visit: No Status: Acute Code(s): G45.9 - TRANSIENT CEREBRAL ISCHEMIC ATTACK, UNSPECIFIED SNOMED Code(s): 353129600
--- NOTE | 2019-03-19 16:36 | P.CONS ---
History of Present Illness - Reason for Consult Consult date: 03/19/19 Medical management Requesting physician: Yissel Doshi - Chief Complaint Abdominal pain - History of Present Illness Consultation: This is a very pleasant 28-year-old patient who follows with Dr. Spencer. Chronic stable medical conditions include GERD, anxiety, depression. Had asthma when many years ago. Patient had a stroke in 2016 with no physical deficits now whi ch patient has been on Plavix. For 3 weeks patient been having right upper quadrant pain and some nausea. And she was referred to see surgeon Dr. Mata. Patient was seen 6 days ago. Plan was to proceed with surgery after having clearance from neurology at what appears to be cardiology. In the meantime for last to 3 days. Patient's symptoms and become much worse with more pain in the right upper quadrant and much more nausea. Patient lost her appetite. Patient presented to the ER and was admitted for the same. No fever no chills. Tired rundown. Patient boyfriend is present and her mother is present. Review of systems: GEN.: Tired EYES: None HEENT: None NECK: None RESPIRATORY: None CARDIOVASCULAR: None GASTROINTESTINAL: As above GENITOURINARY: None MUSCULOSKELETAL: None LYMPHATICS: None HEMATOLOGICAL: None PSYCHIATRY: Bit anxious NEUROLOGICAL: None Past medical history: Asthma in the past, stroke in 2016 with no residue a, GERD, anxiety depression Social history: Does not smoke. There is a boyfriend. Works at the [email or web address]. Drinks alcohol occasionally. Family history: Reviewed, noncontributory to presentation Physical examination: VITAL SIGNS: 97.8, 99, 18, 131 with 86, 97% room air GENERAL: 32.4 BMI, propped up in bed, but anxious. EYES: Pupils equal. Conjunctiva normal. HEENT: External appearance of nose and ears normal, oral cavity grossly normal. NECK: JVD not raised; masses not palpable. HEART: First and second heart sounds are normal; no edema. LUNGS: Respiratory rate normal; clear to auscultation. ABDOMEN: Soft, right upper quadrant tenderness with Quinn's sign positive, no guarding or rigidity, liver spleen not palpable, no masses palpable. PSYCH: Alert and oriented x3; mood and affect anxiousl. NEUROLOGICAL: Cranial nerves grossly intact; no facial asymmetry, power and sensation grossly intact. LYMPHATICS: No lymph nodes palpable in the axilla and neck INVESTIGATIONS, reviewed in the clinical context: White count 9.6 hemoglobin 14.1 potassium 3.9 bicarb 21 16 creatinine 1.04 bilirubin went from 0.6-1.5 AST ALT was 24/ now up to 1 89 x 1 50 alk phos is 146 the other labs are from yesterday's admission Abdominal ultrasound-gallstones and gallbladder sludge Abdominal ultrasound done on March 02 showed-small gallstones and or gallbladder sludge without ultrasound evidence of acute cholecystitis. Fatty infiltration of the liver Assessment: -Acute on chronic cholecystitis, associated with gallstones -Hyperbilirubinemia and early obstructive hepatitis from above -Obesity BMI 32.4 -GERD -Anxiety depression otherwise specified Plan: Patient's Plavix has been held. Patient is on clear liquids. It's okay for patient to take her oral medications if tolerated. IV fluids. LR at 1 25 mL an hour. Does always increased risk of bleeding with the Plavix and this has to be balanced the risk of delaying the surgery. This was discussed with the patient. Patient also put on IV Zosyn. Care was discussed with the patient question answered. Otherwise patient stable to proceed for surgery. Patient does understand the risk with the Plavix. And also the risk of delaying surgery. Thank you Dr. Mata Past Medical History Past Medical History: Asthma, CVA/TIA, GERD/Reflux History of Any Multi-Drug Resistant Organisms: None Reported Past Surgical History: No Surgical Hx Reported Past Anesthesia/Blood Transfusion Reactions: No Reported Reaction Past Psychological History: Anxiety, Depression Smoking Status: Never smoker Past Alcohol Use History: Occasional Past Drug Use History: None Reported - Past Family History Father Family Medical History: No Reported History Mother Family Medical History: AFIB, Hypertension Medications and Allergies Home Medications Medication Instructions Recorded Confirmed Type Clopidogrel [Plavix] 75 mg PO DAILY 07/03/16 03/18/19 History Dextroamphetamine/Amphetamine 10 mg PO BID 03/02/19 03/18/19 History [Adderall] Ranitidine HCl [Zantac] 150 mg PO BID 03/02/19 03/18/19 History buPROPion HCL [Wellbutrin XL] 300 mg PO DAILY 03/02/19 03/18/19 History clonazePAM [KlonoPIN] 0.5 mg PO BID PRN 03/02/19 03/18/19 History Cholecalciferol (Vitamin D3) 2,000 mg PO DAILY 03/18/19 03/18/19 History [Vitamin D3] Cyanocobalamin (Vitamin B-12) 1,000 mcg PO DAILY 03/18/19 03/18/19 History [Vitamin B-12] Allergies Allergy/AdvReac Type Severity Reaction Status Date / Time No Known Allergies Allergy Verified 03/18/19 16:55 Physical Exam Vitals: Vital Signs Temp Pulse Pulse Resp BP BP Pulse Ox 03/19/19 07:00 98.3 F 74 16 111/75 99 03/19/19 01:45 99.2 F 61 16 109/77 99 03/18/19 20:30 98.8 F 82 18 121/79 98 03/18/19 19:00 98.3 F 78 18 139/95 99 Intake and Output 03/19/19 03/19/19 03/19/19 06:59 14:59 22:59 Intake Total 1999 Balance 1999 Intake: Intake, IV Titration 2000 Amount Sodium Chloride 0.9% 1, 1000 000 ml @ 75 mls/hr IV . [id number] [facility] Rx#:[id number] Sodium Chloride 0.9% 1, 1000 000 ml @ 999 mls/hr IV . Q1H1M [facility] Rx#:[id number] Other: # Voids 1 Results CBC & Chem 7: 03/19/19 06:11 03/19/19 06:11 Labs: Abnormal Lab Results - Last 24 Hours (Table) 03/18/19 03/19/19 03/19/19 Range/Units 16:00 06:11 06:11 WBC 11.6 H (3.8-10.6) k/uL Neutrophils # 9.0 H (1.3-7.7) k/uL Chloride 112 H (98-107) mmol/L Carbon Dioxide 21 L (22-30) mmol/L BUN 6 L (7-17) mg/dL Glucose 111 H (74-99) mg/dL Total Bilirubin 1.5 H (0.2-1.3) mg/dL AST 189 H (14-36) U/L ALT 150 H (9-52) U/L Alkaline Phosphatase 146 H (38-126) U/L Urine Ketones Trace H (Negative) Ur Leukocyte Esterase Trace H (Negative) Urine Bacteria Rare H (None) /hpf
[2019-03-19] MEDS ORDERED: NON FORMULARY DRUG (Dextroamphetamine/Amphetamine [Adderall] 10 MG) PO SCH (17:30)
[2019-03-19] MEDS: ACETAMINOPHEN TAB 500 MG TAB PO PRN (19:05)
[2019-03-20] MEDS: METOCLOPRAMIDE 5 MG/ML 2 ML VIAL IVP SCH ×3 (06:05→18:19)
[2019-03-20] MEDS: ACETAMINOPHEN TAB 500 MG TAB PO PRN (06:14)
[2019-03-20] MEDS: PIPERACILLIN-TAZOBACTAM 3.375 GM in SODIUM CHLORIDE 0.9% 100 ML IVPB SCH ×2 (07:24→16:10)
[2019-03-20] MEDS: SODIUM CHLORIDE 0.9% 1,000 ML IV SCH ×2 (07:25→21:39)
--- NOTE | 2019-03-20 11:45 | P.PN ---
Subjective Progress Note Date: 03/20/19 CHIEF COMPLAINT: abdominal pain HISTORY OF PRESENT ILLNESS: Patient examined this morning at the bedside. She reports mild dull right upper quadrant pain. Denies nausea or vomiting. Tolerating liquid diet. Vital signs stable. She is afebrile. PHYSICAL EXAM: VITAL SIGNS: Currently stable. GENERAL: Well-developed in no acute distress. HEENT: Minimal sclera icterus. Extraocular movements grossly intact. Moist buccal mucosa. Head is atraumatic, normocephalic. Hears conversational speech. No nasal drainage. NECK: Supple without lymphadenopathy. CHEST: Non-labored respirations and equal bilateral excursions. CARDIOVASCULAR: Regular rate with regular rhythm. Palpable 2+ radial pulses. ABDOMEN: Soft. Nondistended. Tenderness upon palpation of right upper quadrant. Positive bowel sounds. MUSCULOSKELETAL: No clubbing, cyanosis or edema. NEUROLOGIC: No focal or lateralizing signs. Cranial nerves II through XII grossly intact. PSYCH: Appropriate affect. Alert and oriented to person, place and time. SKIN: Well perfused. Good skin turgor. ASSESSMENT: 1. Acute cholecystitis 2. Suspected choledocholithiasis 3. Elevated bilirubin 3. Transaminitis PLAN: 1. Continue clear liquid diet as tolerated 2. Continue antibiotics. Monitor WBC 3. No labs ordered this AM. Obtain CBC and CMP to monitor LFTs and bilirubin. Possible ERCP if numbers continue to increase 4. Continue to hold plavix 5. Tentatively scheduled for cholecystectomy on 6. No Lovenox per Dr. Doshi. Continue SCDs. Nurse practitioner note has been reviewed by physician. Signing provider agrees with the documented findings, assessment, and plan of care. Objective - Vital Signs Vital signs: Vital Signs Temp 97.1 F L 03/20/19 05:00 Pulse 62 03/20/19 05:00 Resp 18 03/20/19 05:00 BP 109/67 03/20/19 05:00 Pulse Ox 100 03/20/19 05:00 Intake & Output 03/19/19 03/20/19 03/20/19 18:59 06:59 18:59 Intake Total 1999 600 Balance 1999 600 Intake: Intake, IV Titration 2000 Amount Sodium Chloride 0.9% 1, 1000 000 ml @ 75 mls/hr IV . [id number] [facility] Rx#:[id number] Sodium Chloride 0.9% 1, 1000 000 ml @ 999 mls/hr IV . Q1H1M [facility] Rx#:[id number] Oral 600 Other: Voiding Method Toilet # Voids 2 - Labs CBC & Chem 7: 03/19/19 06:11 03/19/19 06:11 Assessment and Plan (1) Acute cholecystitis Current Visit: Yes Status: Acute Code(s): K81.0 - ACUTE CHOLECYSTITIS SNOMED Code(s): 77517597 (2) Elevated liver enzymes Current Visit: Yes Status: Acute Code(s): R74.8 - ABNORMAL LEVELS OF OTHER SERUM ENZYMES SNOMED Code(s): 159481973 (3) Right upper quadrant abdominal pain Current Visit: Yes Status: Acute Code(s): R10.11 - RIGHT UPPER QUADRANT PAIN SNOMED Code(s): 999558352 (4) Cholelithiasis Current Visit: No Status: Acute Code(s): K80.20 - CALCULUS OF GALLBLADDER W /O CHOLECYSTITIS W/O OBSTRUCTION SNOMED Code(s): 994473456
[2019-03-20] MEDS ORDERED: FLUCONAZOLE 150 MG TAB PO STA (14:34)
[2019-03-20 16:47] LABS: ALT 819 U/L (9-52); AST 557 U/L (14-36); African American GFR (CKD) >90 (>60 ml/min/1.73 sqM); Albumin 3.9 g/dL (3.5-5.0); Alkaline Phosphatase 253 U/L (38-126); Anion Gap 12 mmol/L; Blood Urea Nitrogen 4 mg/dL (7-17); Calcium 9.4 mg/dL (8.4-10.2); Carbon Dioxide 21 mmol/L (22-30); Chloride 111 mmol/L (98-107); Glucose 73 mg/dL (74-99); Potassium 4.1 mmol/L (3.5-5.1); Sodium 144 mmol/L (137-145); Total Protein 7.2 g/dL (6.3-8.2)
[2019-03-20 18:25] LABS: Basophils % (A) 1 %; Eosinophils # (A) 0.2 k/uL (0-0.7); Eosinophils % (A) 3 %; HCT 43.1 % (34.0-46.0); HGB 14.7 gm/dL (11.4-16.0); Hypochromasia Slight; Lymphocytes # (A) 1.3 k/uL (1.0-4.8); Lymphocytes % (A) 18 %; MCH 28.5 pg (25.0-35.0); MCHC 34.1 g/dL (31.0-37.0); MCV 83.6 fL (80.0-100.0); Monocytes # (A) 0.5 k/uL (0-1.0); Monocytes % (A) 7 %; Neutrophils # (A) 5.1 k/uL (1.3-7.7); Neutrophils % (A) 71 %; Platelet Count 291 k/uL (150-450); RBC 5.16 m/uL (3.80-5.40); RDW 13.1 % (11.5-15.5); WBC 7.2 k/uL (3.8-10.6)
--- NOTE | 2019-03-20 22:04 | P.PN ---
Progress Note - Text Progress Note Date: 03/20/19 Consultation: This is a very pleasant 28-year-old patient who follows with Dr. Spencer. Chronic stable medical conditions include GERD, anxiety, depression. Had asthma when many years ago. Patient had a stroke in 2016 with no physical deficits now which patient has been on Plavix. For 3 weeks patient been having right upper quadrant pain and some nausea. And she was referred to see surgeon Dr. Mata. Patient was seen 6 days ago. Plan was to proceed with surgery after having clearance from neurology at what appears to be cardiology. In the meantime for last to 3 days. Patient's symptoms and become much worse with more pain in the right upper quadrant and much more nausea. Patient lost her appetite. Patient presented to the ER and was admitted for the same. No fever no chills. Tired rundown. Patient admitted. Acute cholecystitiswith gallstones. Surgery has been post poned because patient is on Plavix. On IV Zosyn. today-sitting up. Decrease abdomen pain. Has nausea. Has been on clear liquids. Mother the bedside. No new issues. Review of systems: Was done for constitutional, cardiovascular, GI, pulmonary. relevant finding as above Active Medications Acetaminophen (Tylenol Tab) 1,000 mg PO Q6HR PRN PRN Reason: Fever and/ or Pain Last Admin: 03/20/19 06:14 Dose: 1,000 mg Documented by: Hydromorphone HCl (Dilaudid) 1 mg IVP Q3HR PRN PRN Reason: Severe Pain Hydromorphone HCl (Dilaudid) 0.5 mg IVP Q3HR PRN PRN Reason: Moderate Pain Piperacillin Sod/Tazobactam (Sod 3.375 gm/ Sodium Chloride) 100 mls @ 25 mls/hr IVPB Q8HR [facility] Last Admin: 03/20/19 16:10 Dose: 25 mls/hr Documented by: Sodium Chloride (Saline 0.9%) 1,000 mls @ 75 mls/hr IV .[id number] [facility] Last Admin: 03/20/19 07:25 Dose: 75 mls/hr Documented by: Lorazepam (Ativan) 1 mg IV Q4HR PRN PRN Reason: Anxiety Metoclopramide HCl (Reglan) 10 mg IVP Q6HR [facility] Last Admin: 03/20/19 18:19 Dose: Not Given Documented by: Naloxone HCl (Narcan) 0.2 mg IV Q2M PRN PRN Reason: Opioid Reversal Ondansetron HCl (Zofran) 4 mg IVP Q6HR PRN PRN Reason: Nausea Physical examination: VITAL SIGNS: 97.1, 62, 18, 109/67, 100% room air GENERAL: sitting up in bed, awakes. EYES: Pupils equal. Conjunctiva icterus HEENT: External appearance of nose and ears normal, oral cavity grossly normal. NECK: JVD not raised; masses not palpable. HEART: First and second heart sounds are normal; no edema. LUNGS: Respiratory rate normal; clear to auscultation. ABDOMEN: Soft, right upper quadrant tenderness with Quinn's sign positive, no guarding or rigidity, liver spleen not palpable, no masses palpable. PSYCH: Alert and oriented x3; mood and affect anxiousl. INVESTIGATIONS, reviewed in the clinical context: White count 7.2 hemoglobin 40.7 potassium 4.1 AST 557 ALT 819 total bilirubin 4 alk phos 253 Admission labs: White count 9.6 hemoglobin 14.1 potassium 3.9 bicarb 21 16 creatinine 1.04 bilirubin went from 0.6-1.5 AST ALT was 24/41 now up to 1 89 x 1 50 alk phos is 146 the other labs are from yesterday's admission Abdominal ultrasound-gallstones and gallbladder sludge Abdominal ultrasound done on March 02 showed-small gallstones and or gallbladder sludge without ultrasound evidence of acute cholecystitis. Fatty infiltration of the liver Assessment: -Acute on chronic cholecystitis, associated with gallstones -Hyperbilirubinemia and early obstructive hepatitis , worsening -Obesity BMI 32.4 -GERD -Anxiety depression otherwise specified -Metabolic acidosis Plan: continue with IV Zosyn.lead sodium bicarbonate.preliminary clear liquids. Surgery is being scheduled for coming . Care was discussed with the patient and her mother. Thank you Dr. Mata
[2019-03-21] MEDS: METOCLOPRAMIDE 5 MG/ML 2 ML VIAL IVP SCH ×5 (00:48→23:51)
[2019-03-21] MEDS: PIPERACILLIN-TAZOBACTAM 3.375 GM in SODIUM CHLORIDE 0.9% 100 ML IVPB SCH ×4 (00:48→23:51)
[2019-03-21 07:59] LABS: ALT 728 U/L (9-52); AST 324 U/L (14-36); African American GFR (CKD) >90 (>60 ml/min/1.73 sqM); Albumin 3.8 g/dL (3.5-5.0); Alkaline Phosphatase 279 U/L (38-126); Anion Gap 13 mmol/L; Blood Urea Nitrogen 5 mg/dL (7-17); Calcium 9.4 mg/dL (8.4-10.2); Carbon Dioxide 18 mmol/L (22-30); Chloride 112 mmol/L (98-107); Glucose 81 mg/dL (74-99); Potassium 3.8 mmol/L (3.5-5.1); Sodium 143 mmol/L (137-145); Total Bilirubin 3.8 mg/dL (0.2-1.3); Total Protein 6.9 g/dL (6.3-8.2)
[2019-03-21 08:00] LABS: Basophils % (A) 1 %; Eosinophils # (A) 0.3 k/uL (0-0.7); Eosinophils % (A) 4 %; HCT 41.1 % (34.0-46.0); HGB 14.3 gm/dL (11.4-16.0); Lymphocytes # (A) 1.7 k/uL (1.0-4.8); Lymphocytes % (A) 24 %; MCH 28.2 pg (25.0-35.0); MCHC 34.9 g/dL (31.0-37.0); MCV 80.8 fL (80.0-100.0); Mean Platelet Volume 6.2; Monocytes # (A) 0.5 k/uL (0-1.0); Monocytes % (A) 7 %; Neutrophils # (A) 4.7 k/uL (1.3-7.7); Neutrophils % (A) 64 %; Platelet Count 301 k/uL (150-450); RBC 5.09 m/uL (3.80-5.40); RDW 13.2 % (11.5-15.5); WBC 7.3 k/uL (3.8-10.6)
[2019-03-21] MEDS: buPROPion XL 300 MG TAB.ER.24H PO SCH (09:59)
--- NOTE | 2019-03-21 11:52 | P.PN ---
<Melissa Guerra - Last Filed: 03/21/19 11:47> Subjective Progress Note Date: 03/21/19 CHIEF COMPLAINT: abdominal pain HISTORY OF PRESENT ILLNESS: Patient examined this morning at the bedside. She reports mild right upper quadrant pain. Denies nausea or vomiting. Tolerating liquid diet. Vital signs stable. She is afebrile. Bilirubin, AST, ALT increased yesterday. Slightly improved this AM. GI has been consulted. PHYSICAL EXAM: VITAL SIGNS: Currently stable. GENERAL: Well-developed in no acute distress. HEENT: Minimal sclera icterus. Extraocular movements grossly intact. Moist buccal mucosa. Head is atraumatic, normocephalic. Hears conversational speech. No nasal drainage. NECK: Supple without lymphadenopathy. CHEST: Non-labored respirations and equal bilateral excursions. CARDIOVASCULAR: Regular rate with regular rhythm. Palpable 2+ radial pulses. ABDOMEN: Soft. Nondistended. Tenderness upon palpation of right upper quadrant. Positive bowel sounds. MUSCULOSKELETAL: No clubbing, cyanosis or edema. NEUROLOGIC: No focal or lateralizing signs. Cranial nerves II through XII grossly intact. PSYCH: Appropriate affect. Alert and oriented to person, place and time. SKIN: Well perfused. Good skin turgor. ASSESSMENT: 1. Acute cholecystitis 2. Suspected choledocholithiasis 3. Elevated bilirubin 3. Transaminitis PLAN: 1. GI consulted for worsening bilirubin. Possible ERCP. NPO until evaluated by GI physician 2. Continue antibiotics. Monitor WBC 3. Daily CMP 4. Continue to hold plavix 5. Plan for cholecystectomy when medically stable 6. No Lovenox per Dr. Doshi. Continue SCDs. Nurse practitioner note has been reviewed by physician. Signing provider agrees with the documented findings, assessment, and plan of care. Objective - Vital Signs Vital signs: Vital Signs Temp 97.9 F 03/21/19 04:55 Pulse 82 03/21/19 04:55 Resp 16 03/21/19 04:55 BP 115/73 03/21/19 04:55 Pulse Ox 99 03/21/19 04:55 Intake & Output 03/20/19 03/21/19 03/21/19 18:59 06:59 18:59 Intake Total 540 Balance 540 Intake: Oral 540 Other: Voiding Method Toilet Toilet Toilet # Voids 2 1 1 - Labs CBC & Chem 7: 03/21/19 07:23 03/21/19 07:23 Labs: Abnormal Lab Results - Last 24 Hours (Table) 03/20/19 03/21/19 Range/Units 12:01 07:23 Chloride 111 H 112 H (98-107) mmol/L Carbon Dioxide 21 L 18 L (22-30) mmol/L BUN 4 L 5 L (7-17) mg/dL Glucose 73 L (74-99) mg/dL Total Bilirubin 4.0 H 3.8 H (0.2-1.3) mg/dL AST 557 H 324 H (14-36) U/L ALT 819 H 728 H (9-52) U/L Alkaline Phosphatase 253 H 279 H (38-126) U/L Assessment and Plan (1) Acute cholecystitis Current Visit: Yes Status: Acute Code(s): K81.0 - ACUTE CHOLECYSTITIS SNOMED Code(s): 06519038 (2) Elevated liver enzymes Current Visit: Yes Status: Acute Code(s): R74.8 - ABNORMAL LEVELS OF OTHER SERUM ENZYMES SNOMED Code(s): 748592637 (3) Right upper quadrant abdominal pain Current Visit: Yes Status: Acute Code(s): R10.11 - RIGHT UPPER QUADRANT PAIN SNOMED Code(s): 713346101 (4) Cholelithiasis Current Visit: No Status: Acute Code(s): K80.20 - CALCULUS OF GALLBLADDER W/O CHOLECYSTITIS W/O OBSTRUCTION SNOMED Code(s): 390485227 <Yissel Doshi N - Last Filed: 03/21/19 20:16> Subjective Elevated liver enzymes are slowly improving. We will arrange for cholecystectomy. Await GI assessment. Objective - Vital Signs Vital signs: Vital Signs Temp 98.6 F 03/21/19 14:39 Pulse 67 03/21/19 14:39 Resp 16 03/21/19 14:39 BP 124/72 03/21/19 14:39 Pulse Ox 99 03/21/19 14:39 Intake & Output 03/21/19 03/21/19 03/22/19 06:59 18:59 06:59 Other: Voiding Method Toilet Toilet # Voids 1 2 # Bowel Movements 0 - Labs CBC & Chem 7: 03/21/19 07:23 03/21/19 07:23 Labs: Abnormal Lab Results - Last 24 Hours (Table) 03/21/19 Range/Units 07:23 Chloride 112 H (98-107) mmol/L Carbon Dioxide 18 L (22-30) mmol/L BUN 5 L (7-17) mg/dL Total Bilirubin 3.8 H (0.2-1.3) mg/dL AST 324 H (14-36) U/L ALT 728 H (9-52) U/L Alkaline Phosphatase 279 H (38-126) U/L Assessment and Plan (1) Acute cholecystitis Current Visit: Yes Status: Acute Code(s): K81.0 - ACUTE CHOLECYSTITIS SNOMED Code(s): 17721296 (2) Choledocholithiasis with acute cholecystitis Current Visit: Yes Status: Acute Code(s): K80.42 - CALCULUS OF BILE DUCT W ACUTE CHOLECYSTITIS W/O OBSTRUCTION SNOMED Code(s): 02421221 (3) Elevated liver enzymes Current Visit: Yes Status: Acute Code(s): R74.8 - ABNORMAL LEVELS OF OTHER SERUM ENZYMES SNOMED Code(s): 797534967 (4) Right upper quadrant abdominal pain Current Visit: Yes Status: Acute Code(s): R10.11 - RIGHT UPPER QUADRANT PAIN SNOMED Code(s): 940619923 (5) Hypertension Current Visit: No Status: Acute Code(s): I10 - ESSENTIAL (PRIMARY) HYPERTENSION SNOMED Code(s): 16798469 (6) Transient cerebral ischemia Current Visit: No Status: Acute Code(s): G45.9 - TRANSIENT CEREBRAL ISCHEMIC ATTACK, UNSPECIFIED SNOMED Code(s): 917348426
[2019-03-21] MEDS: SODIUM CHLORIDE 0.9% 1,000 ML IV SCH (12:08)
--- NOTE | 2019-03-21 20:31 | CONS ---
CONSULTATION DATE OF SERVICE: 03/21/2019. REQUESTING PHYSICIAN: Dr. Spencer REASON FOR CONSULTATION: Elevated LFTs. Right upper quadrant abdominal pain. Rule out CBD stone. HISTORY OF PRESENT ILLNESS: The patient is a 28-year-old pleasant young lady, admitted to the hospital because of acute onset of severe epigastric right upper quadrant abdominal pain on and off for the last 3-4 weeks duration. The pain was extremely severe. Three days ago she came into the emergency room, was noted to have elevated LFTs and hence we are consulted for possible ERCP. The patient had an ultrasound of the abdomen done that showed evidence of gallstones but no biliary ductal dilation. She has history of CVA about 2 years ago and has been on aspirin and Plavix since then. In the emergency room, her initial labs showed a bilirubin of 1.5 with AST and ALT of 189 and 150 respectively. Yesterday, T-bilirubin went up to 4 and today it is 3.8. AST and ALT are 324 and 728 respectively. Amylase and lipase are within normal limits. The patient is feeling much better today. PAST MEDICAL HISTORY: History of CVA in the past, anxiety, depression, and gastroesophageal reflux disease. MEDICATIONS: Medications at home include: Zantac, Wellbutrin, Klonopin, Plavix, Adderall, Vitamin B12. ALLERGIES: None. SOCIAL HISTORY: No smoking or alcohol use. FAMILY HISTORY: Unremarkable. REVIEW OF SYSTEMS: Cardiopulmonary: No chest pain, shortness of breath. Genitourinary: No dysuria or hematuria. Musculoskeletal unremarkable. Skin unremarkable. Endocrine unremarkable. Psychiatric unremarkable. Neurology unremarkable. ENT/VISION: Unremarkable. CONSTITUTIONAL: No recent weight loss. No fever, chills, night sweats. PHYSICAL EXAMINATION: Blood pressure 124/72, pulse is 67, temperature 98.6. HEENT examination unremarkable. Conjunctivae pink. Sclerae anicteric. NECK: No JVD or lymph node enlargement. CHEST: Clear to auscultation. HEART: Regular rate and rhythm. ABDOMEN: Soft. Bowel sounds are positive. Mild tenderness in the epigastric area. EXTREMITIES: No pedal edema. SKIN no rashes. NEUROLOGIC: Alert and oriented x3. No focal deficits. LABORATORY DATA: Labs done yesterday: The bilirubin was 4, AST 557, ALT 819, alkaline phosphatase 258. Today, bilirubin 3.8. The AST 324, ALT 728 and alkaline phosphatase 278. CBC with differential count is within normal limits. IMPRESSION: This is a young lady who admitted to the hospital with epigastric right upper quadrant abdominal pain for the last 3 days duration and noted to have elevated LFTs as well as jaundice with a bilirubin of 3.8 and elevated ALT and AST in the range of 305, 700. Ultrasound showed gallstones, no biliary ductal dilation. Based on her biochemical parameters, most likely, she may have choledocholithiasis. She is however asymptomatic today. RECOMMENDATIONS: I had a lengthy discussion with the patient regarding possibility of choledocholithiasis and need for ERCP. I discussed with her the risks, benefits and complications. After discussing this, the patient became extremely anxious and she would rather have an alternative procedure that is more safer and hence I recommended an MRCP to be done today. If the MRCP shows any evidence of filling defects, then will consider proceeding with an ERCP tomorrow. The patient is agreeable with this plan. Thank you for this consultation. CHRISTINEL / IJN: [id number] /
--- NOTE | 2019-03-21 22:34 | P.PN ---
Progress Note - Text Progress Note Date: 03/21/19 Consultation: This is a very pleasant 28-year-old patient who follows with Dr. Spencer. Chronic stable medical conditions include GERD, anxiety, depression. Had asthma when many years ago. Patient had a stroke in 2016 with no physical deficits now which patient has been on Plavix. For 3 weeks patient been having right upper quadrant pain and some nausea. And she was referred to see surgeon Dr. Mata. Patient was seen 6 days ago. Plan was to proceed with surgery after having clearance from neurology at what appears to be cardiology. In the meantime for last to 3 days. Patient's symptoms and become much worse with more pain in the right upper quadrant and much more nausea. Patient lost her appetite. Patient presented to the ER and was admitted for the same. No fever no chills. Tired rundown. Patient admitted. Acute cholecystitiswith gallstones. Surgery has been post poned because patient is on Plavix. On IV Zosyn. today-laying in bed. Comfortable. No abdominal pain. No nausea vomiting. Review of systems: Was done for constitutional, cardiovascular, GI, pulmonary. relevant finding as above Active Medications Acetaminophen (Tylenol Tab) 1,000 mg PO Q6HR PRN PRN Reason: Fever and/ or Pain Last Admin: 03/20/19 06:14 Dose: 1,000 mg Documented by: Bupropion HCl (Wellbutrin Xl) 300 mg PO DAILY [facility] Last Admin: 03/21/19 09:59 Dose: 300 mg Documented by: Hydromorphone HCl (Dilaudid) 1 mg IVP Q3HR PRN PRN Reason: Severe Pain Hydromorphone HCl (Dilaudid) 0.5 mg IVP Q3HR PRN PRN Reason: Moderate Pain Piperacillin Sod/Tazobactam (Sod 3.375 gm/ Sodium Chloride) 100 mls @ 25 mls/hr IVPB Q8HR [facility] Last Admin: 03/21/19 16:21 Dose: 25 mls/hr Documented by: Sodium Chloride (Saline 0.9%) 1,000 mls @ 75 mls/hr IV .[id number] [facility] Last Admin: 03/21/19 12:08 Dose: 75 mls/hr Documented by: Lorazepam (Ativan) 1 mg IV Q4HR PRN PRN Reason: Anxiety Metoclopramide HCl (Reglan) 10 mg IVP Q6HR [facility] Last Admin: 03/21/19 17:50 Dose: 10 mg Documented by: Naloxone HCl (Narcan) 0.2 mg IV Q2M PRN PRN Reason: Opioid Reversal Ondansetron HCl (Zofran) 4 mg IVP Q6HR PRN PRN Reason: Nausea Physical examination: VITAL SIGNS: 98.6, 67, 16, 124/72, 99% room air GENERAL: Laying in bed, comfortable EYES: Pupils equal. Conjunctiva icterus HEENT: External appearance of nose and ears normal, oral cavity grossly normal. NECK: JVD not raised; masses not palpable. HEART: First and second heart sounds are normal; no edema. LUNGS: Respiratory rate normal; clear to auscultation. ABDOMEN: Soft, right upper quadrant tenderness with Quinn's sign positive, no guarding or rigidity, liver spleen not palpable, no masses palpable. PSYCH: Alert and oriented x3; mood and affect anxiousl. INVESTIGATIONS, reviewed in the clinical context: White count 7.3 potassium 3.8. Total bilirubin 3.8 AST 324 ALT 728 alk phos 279 Admission labs: White count 9.6 hemoglobin 14.1 potassium 3.9 bicarb 21 16 creatinine 1.04 bilirubin went from 0.6-1.5 AST ALT was 24/41 now up to 1 89 x 1 50 alk phos is 146 the other labs are from yesterday's admission Abdominal ultrasound-gallstones and gallbladder sludge Abdominal ultrasound done on March 02 showed-small gallstones and or gallbladder sludge without ultrasound evidence of acute cholecystitis. Fatty infiltration of the liver Assessment: -Acute on chronic cholecystitis, associated with gallstones -Hyperbilirubinemia and early obstructive hepatitis , leveled off -Obesity BMI 32.4 -GERD -Anxiety depression otherwise specified -Metabolic acidosis Plan: continue with IV Zosyn.l patient was seen by GI Dr. Jenknis. Plan for MRCP. Care discussed with the patient. Thank you Dr. Mata
[2019-03-22] MEDS: SODIUM CHLORIDE 0.9% 1,000 ML IV SCH ×2 (03:26→14:15)
[2019-03-22] MEDS: METOCLOPRAMIDE 5 MG/ML 2 ML VIAL IVP SCH ×4 (06:13→23:48)
[2019-03-22] MEDS: buPROPion XL 300 MG TAB.ER.24H PO SCH (06:55)
[2019-03-22] MEDS: PIPERACILLIN-TAZOBACTAM 3.375 GM in SODIUM CHLORIDE 0.9% 100 ML IVPB SCH ×3 (06:57→23:48)
[2019-03-22 08:34] LABS: Basophils % (A) 1 %; Eosinophils # (A) 0.2 k/uL (0-0.7); Eosinophils % (A) 2 %; Lymphocytes # (A) 1.4 k/uL (1.0-4.8); Lymphocytes % (A) 19 %; MCH 29.1 pg (25.0-35.0); MCHC 35.6 g/dL (31.0-37.0); MCV 81.7 fL (80.0-100.0); Mean Platelet Volume 6.1; Monocytes # (A) 0.5 k/uL (0-1.0); Monocytes % (A) 6 %; Neutrophils # (A) 5.1 k/uL (1.3-7.7); Neutrophils % (A) 71 %; Platelet Count 313 k/uL (150-450); RBC 5.14 m/uL (3.80-5.40); RDW 13.5 % (11.5-15.5); WBC 7.3 k/uL (3.8-10.6)
[2019-03-22 08:39] LABS: ALT 678 U/L (9-52); AST 274 U/L (14-36); African American GFR (CKD) >90 (>60 ml/min/1.73 sqM); Albumin 3.9 g/dL (3.5-5.0); Alkaline Phosphatase 333 U/L (38-126); Anion Gap 17 mmol/L; Blood Urea Nitrogen 7 mg/dL (7-17); Calcium 9.5 mg/dL (8.4-10.2); Carbon Dioxide 15 mmol/L (22-30); Chloride 111 mmol/L (98-107); Glucose 82 mg/dL (74-99); Potassium 4.1 mmol/L (3.5-5.1); Sodium 143 mmol/L (137-145); Total Bilirubin 4.3 mg/dL (0.2-1.3); Total Protein 7.3 g/dL (6.3-8.2)
[2019-03-22 10:57] VITALS: BMI 32.4
--- NOTE | 2019-03-22 11:06 | MR ---
EXAMINATION TYPE: MR MRCP DATE OF EXAM: 03/22/2019 COMPARISON: Gallbladder ultrasound March 18, 2019 HISTORY: CBD stones per order. Standard multiplanar, multisequence MRI departmental protocol Multiplanar, multisequence images of the abdomen were acquired. Thin and thick slice MRCP imaging is performed on the MRI scanner. FINDINGS: Liver/gallbladder/pancreas/biliary system: Pancreas is overall normal in size without solid or cystic mass. Liver is overall normal in size without solid or cystic mass. Gallbladder has distended margin s and is thought dilated with small dependent gallstones all measuring under 3 mm in size. Wall thick ness without upper limits of normal. No surrounding fat stranding is evident. The MRCP images show visualization of pancreatic duct which is thought within normal limits. Common b ile duct is mildly dilated up to 8 mm with slight beaded appearance. There is slight beaded appearanc e of the central intrahepatic ducts which are perhaps mildly dilated. No intraluminal calculus is tiny kody seen. Other: Lung bases are clear. The spleen and both adrenal glands are normal in size. No suspicious bow el dilatation. No abdominal ascites. Visualized osseous structures are intact. IMPRESSION: Several small tiny dependent gallstones in a distended gallbladder. There is mild central intrahepatic and extrahepatic biliary dilatation with beaded appearance. Consider underlying cholang itis. No definitive CBD stones.
--- NOTE | 2019-03-22 13:45 | P.PN ---
Subjective Progress Note Date: 03/22/19 CHIEF COMPLAINT: Right upper quadrant abdominal pain HISTORY OF PRESENT ILLNESS: The patient is a 28-year-old female admitted for right upper quadrant abdominal pain. She comes in with gallstones. She has been NPO after completing MRCP and she has been seen by GI. No nausea or vomiting. She has been persistently tearful for history of severe depression. ROS: No reports of nausea and vomiting. No fevers or chills. No new chest pain. No productive sputum PHYSICAL EXAM: VITAL SIGNS: Reviewed CONSTITUTIONAL: Well developed and in no acute distress. EYES: Conjuctivae with sclera icterus. Extraocular movements grossly intact. HEAD, EARS, NOSE, THROAT: Moist buccal mucosa. Head is atraumatic, normocephalic. Hears conversational speech. No nasal drainage. NECK: Supple. No thyroidomegaly. RESPIRATORY: Non-labored respirations and equal bilateral excursions. CARDIOVASCULAR: Palpable 2+ radial pulses. Regular rate. Regular rhythm. ABDOMEN: Soft. No peritonitis. MUSCULOSKELETAL: No gross deformity of the lower extremities noted. No clubbing. No cyanosis. SKIN: Good skin turgor. Well perfused. NEUROLOGIC: Cranial nerves I through XII grossly intact. No focal or lateralizing signs. PSYCH: Appropriate affect. Alert and oriented to person, place and time. CLINCAL LABS: White blood cell count normal 7,300. LFTs elevated between 200s to 700s, total bilirubin up 3.8 to 4.3 STUDIES: MRCP independently reviewed with no abnormalities of the trifurcation of the biliary tree REPORT: MRCP report demonstrates gallstones, possible cholangitis, and dilated CBD ASSESSMENT: 1. Acute choledocholithiasis 2. Acute cholecystitis PLAN: 1. I spoke with Dr. Valdemar AVENDAÑO regarding MRCP. 2. I spoke to patient regarding surgical plan for ERCP followed by cholecystectomy. 3. All questions were addressed. 4. Cholecystectomy planned for tomorrow with ERCP today. Objective - Vital Signs Vital signs: Vital Signs Temp 98.2 F 03/22/19 07:00 Pulse 69 03/22/19 07:00 Resp 14 03/22/19 07:00 BP 111/69 03/22/19 07:00 Pulse Ox 97 03/22/19 07:00 Intake & Output 10/01/19 10/02/19 10/02/19 18:59 06:59 18:59 Intake Total 200 Balance 200 Weight 85.729 kg Intake: Oral 200 Other: Voiding Method Toilet Toilet Toilet # Voids 2 2 1 # Bowel Movements 0 - Labs CBC & Chem 7: 03/22/19 08:05 03/22/19 08:05 Labs: Abnormal Lab Results - Last 24 Hours (Table) 03/22/19 Range/Units 08:05 Chloride 111 H (98-107) mmol/L Carbon Dioxide 15 L (22-30) mmol/L Total Bilirubin 4.3 H (0.2-1.3) mg/dL AST 274 H (14-36) U/L ALT 678 H (9-52) U/L Alkaline Phosphatase 333 H (38-126) U/L Assessment and Plan (1) Acute cholecystitis Current Visit: Yes Status: Acute Code(s): K81.0 - ACUTE CHOLECYSTITIS SNOMED Code(s): 88784110 (2) Choledocholithiasis with acute cholecystitis Current Visit: Yes Status: Acute Code(s): K80.42 - CALCULUS OF BILE DUCT W ACUTE CHOLECYSTITIS W/O OBSTRUCTION SNOMED Code(s): 98184130 (3) Elevated liver enzymes Current Visit: Yes Status: Acute Code(s): R74.8 - ABNORMAL LEVELS OF OTHER SERUM ENZYMES SNOMED Code(s): 755902279 (4) Right upper quadrant abdominal pain Current Visit: Yes Status: Acute Code(s): R10.11 - RIGHT UPPER QUADRANT PAIN SNOMED Code(s): 735417920 (5) Hypertension Current Visit: No Status: Acute Code(s): I10 - ESSENTIAL (PRIMARY) HYPERTENSION SNOMED Code(s): 65526033 (6) Transient cerebral ischemia Current Visit: No Status: Acute Code(s): G45.9 - TRANSIENT CEREBRAL ISCHEMIC ATTACK, UNSPECIFIED SNOMED Code(s): 861685734 (7) Depressive disorder Current Visit: Yes Status: Acute Code(s): F32.9 - MAJOR DEPRESSIVE DISORDER, SINGLE EPISODE, UNSPECIFIED SNOMED Code(s): 90076904
[2019-03-22] MEDS ORDERED: INDOMETHACIN 50MG SUPPOSITORY RECTAL ONE (14:00)
[2019-03-22] MEDS ORDERED: PROPOFOL 10 MG/ML 20 ML VIAL IV ONE (15:20)
[2019-03-22] MEDS ORDERED: KETAMINE 10 MG/ML 20 ML VIAL ONE (15:20)
[2019-03-22] MEDS ORDERED: GLUCAGON 1 MG/ML VIAL ONE (15:20)
[2019-03-22] MEDS ORDERED: MIDAZOLAM 2 MG/2 ML VIAL ONE (15:20)
[2019-03-22] MEDS ORDERED: LIDOCAINE 1% INJ 10MG/ML (20 ML MDV) ONE (15:20)
[2019-03-22] MEDS ORDERED: IOPAMIDOL-300 50ML BTL MISCELLANE ONE (15:35)
--- NOTE | 2019-03-22 15:55 | P.PCN ---
Date of Procedure: 03/22/19 Procedure(s) Performed: Brief history: Patient is a 28 year-old pleasant lady scheduled for an ERCP as part of evaluation of abdominal pain and elevated serum transaminases/jaundice for the last 2 days' duration. She was admitted hospital and initial ultrasound showed evidence of gallstones. Her serum transaminases were elevated and bilirubin was 3.8 g/dL. She had an MRCP done yesterday and she refuses to have an ERCP which revealed a dilated CBD and mildly dilated intrahepatic but no obvious filling defect identified. However repeat labs today showed an elevated bilirubin up to 4.3 with persistent elevation of serum transaminases. Because of the clinical suspicion for CBD stone she is scheduled for an ERCP today. Procedure performed: ERCP with biliary sphincterotomy and balloon stone extraction Preoperative diagnoses: Abdominal pain/elevated LFTs and jaundice/rule out CBD stone IV sedation per anesthesia: Procedure: After informed consent was obtained from the patient and after the risks benefits and complications including bleeding perforation and pancreatitis explained in detail the patient was brought into the endoscopy unit. The patient was placed in prone position and IV conscious sedation was administered by anesthesia under continuous monitoring. The Olympus side-viewing duodenoscope was then inserted into the mouth and esophagus intubated without any difficulty. The scope was gradually advanced into the stomach and duodenum. The major papilla was identified without any difficulty. Initial cannulation resulted in opacification of the pancreatic duct that appeared normal. Subsequent cannulation resulted in opacification of the common bile duct that appeared dilated measuring at least 1 cm and with 2 small filling defects noted. At this time the catheter was exchanged over the guidewire and a biliary sphincterotomy was performed at 12 o'clock position and was extended to 1 cm in length. Following this 8.5 mm balloon was passed over the guidewire into the proximal CBD, gently inflated and withdrawn and st there were 2 small exiting the ampulla. Following this an occlusion cholangiogram was performed and no other filling defects were noted. Patient tolerated the procedure well. Impression: Dilated common bile duct with 2 small filling defects noted in the distal CBD, status post biliary sphincterotomy and balloon stone extraction as described above Normal-appearing pancreatic duct Recommendations: The findings of this examination were discussed with the patient as well as a family. She will remain on a clear liquid diet today. Repeat labs in the morning. Continue with antibiotics.
--- NOTE | 2019-03-22 23:32 | P.PN ---
Progress Note - Text Progress Note Date: 03/22/19 Interval history: This is a very pleasant 28-year-old patient who follows with Dr. Spencer. Chronic stable medical conditions include GERD, anxiety, depression. Had asthma when many years ago. Patient had a stroke in 2016 with no physical deficits now which patient has been on Plavix. For 3 weeks patient been having right upper quadrant pain and some nausea. And she was referred to see surgeon Dr. Mata. Patient was seen 6 days ago. Plan was to proceed with surgery after having clearance from neurology at what appears to be cardiology. In the meantime for last to 3 days. Patient's symptoms and become much worse with more pain in the right upper quadrant and much more nausea. Patient lost her appetite. Patient presented to the ER and was admitted for the same. No fever no chills. Tired rundown. Patient admitted. Acute cholecystitis with gallstones. Surgery has been postponed because patient is on Plavix. On IV Zosyn. today-no abdominal pain. No nausea vomiting. MRCP was done this morning. Review of systems: Was done for constitutional, cardiovascular, GI, pulmonary. relevant finding as above Active Medications Acetaminophen (Tylenol Tab) 1,000 mg PO Q6HR PRN PRN Reason: Fever and/ or Pain Last Admin: 03/20/19 06:14 Dose: 1,000 mg Documented by: Bupropion HCl (Wellbutrin Xl) 300 mg PO DAILY [facility] Last Admin: 03/22/19 06:55 Dose: Not Given Documented by: Hydromorphone HCl (Dilaudid) 1 mg IVP Q3HR PRN PRN Reason: Severe Pain Hydromorphone HCl (Dilaudid) 0.5 mg IVP Q3HR PRN PRN Reason: Moderate Pain Piperacillin Sod/Tazobactam (Sod 3.375 gm/ Sodium Chloride) 100 mls @ 25 mls/hr IVPB Q8HR [facility] Last Admin: 03/22/19 15:09 Dose: 25 mls/hr Documented by: Sodium Chloride (Saline 0.9%) 1,000 mls @ 75 mls/hr IV .[id number] [facility] Last Admin: 03/22/19 14:15 Dose: Not Given Documented by: Indocyanine Green (Ic Green) 7.5 mg IV ONCE ONE Stop: 03/23/19 10:01 Lorazepam (Ativan) 1 mg IV Q4HR PRN PRN Reason: Anxiety Metoclopramide HCl (Reglan) 10 mg IVP Q6HR [facility] Last Admin: 03/22/19 17:28 Dose: 10 mg Documented by: Naloxone HCl (Narcan) 0.2 mg IV Q2M PRN PRN Reason: Opioid Reversal Ondansetron HCl (Zofran) 4 mg IVP Q6HR PRN PRN Reason: Nausea Physical examination: VITAL SIGNS: 98.2, 69, 14, 11 1/6 9, 97% room air GENERAL: Sitting up in, comfortable EYES: Pupils equal. Conjunctiva icterus HEENT: External appearance of nose and ears normal, oral cavity grossly normal. NECK: JVD not raised; masses not palpable. HEART: First and second heart sounds are normal; no edema. LUNGS: Respiratory rate normal; clear to auscultation. ABDOMEN: Soft, right upper quadrant tenderness with Quinn's sign positive, no guarding or rigidity, liver spleen not palpable, no masses palpable. PSYCH: Alert and oriented x3; mood and affect anxiousl. INVESTIGATIONS, reviewed in the clinical context: White count 7.3 potassium 4.1 bicarb 15 total bilirubin 4.3 AST 274 AST 678 Admission labs: White count 9.6 hemoglobin 14.1 potassium 3.9 bicarb 21 16 creatinine 1.04 bilirubin went from 0.6-1.5 AST ALT was 24/41 now up to 1 89 x 1 50 alk phos is 146 the other labs are from yesterday's admission Abdominal ultrasound-gallstones and gallbladder sludge Abdominal ultrasound done on March 02 showed-small gallstones and or gallbladder sludge without ultrasound evidence of acute cholecystitis. Fatty infiltration of the liver Assessment: -Acute on chronic cholecystitis, associated with gallstones -Hyperbilirubinemia and early obstructive hepatitis , leveled off -Obesity BMI 32.4 -GERD -Anxiety depression otherwise specified -Metabolic acidosis Plan: Patient is a MRCP earlier today. That did show gallstones. Questionable cholangitis. Late in the day Sphincterotomy was carried out per Dr. Blanche Aldrich and extraction of gallstones were done.
[2019-03-23] MEDS: SODIUM CHLORIDE 0.9% 1,000 ML IV SCH ×2 (06:27→16:55)
[2019-03-23] MEDS: METOCLOPRAMIDE 5 MG/ML 2 ML VIAL IVP SCH ×4 (06:27→17:32)
--- NOTE | 2019-03-23 07:12 | FL ---
EXAMINATION TYPE: FL ERCP biliary duct only DATE OF EXAM: 03/22/2019 CLINICAL HISTORY: Common bile duct calculi. Fluoroscopic documentation during ERCP. TECHNIQUE: Fluoroscopy. COMPARISON: None. FINDINGS: Fluoroscopic guidance was provided during procedure performed by Dr. Doshi. A total o f 29 seconds of fluoroscopic time was utilized during the procedure and 3 spot images were acquired d uring common bile duct stone retrieval and sphincterotomy. IMPRESSION: As Above.
[2019-03-23] MEDS: PIPERACILLIN-TAZOBACTAM 3.375 GM in SODIUM CHLORIDE 0.9% 100 ML IVPB SCH ×2 (08:04→16:50)
[2019-03-23 08:30] LABS: HCT 42.8 % (34.0-46.0); HGB 15.1 gm/dL (11.4-16.0); MCHC 35.2 g/dL (31.0-37.0); MCV 82.4 fL (80.0-100.0); Mean Platelet Volume 6.1; Platelet Count 340 k/uL (150-450); RDW 13.9 % (11.5-15.5); WBC 11.8 k/uL (3.8-10.6)
[2019-03-23 09:01] LABS: Albumin 4.1 g/dL (3.5-5.0); Calcium 9.8 mg/dL (8.4-10.2); Potassium 4.2 mmol/L (3.5-5.1); Total Bilirubin 2.2 mg/dL (0.2-1.3); Total Protein 7.4 g/dL (6.3-8.2)
[2019-03-23] MEDS ORDERED: IV FLUID CONTINUATION 1,000 ML IV ONE (09:30)
[2019-03-23] MEDS ORDERED: INDOCYANINE GREEN 25 MG VIAL IV ONE (10:00)
[2019-03-23] MEDS ORDERED: ONDANSETRON 4 MG/2 ML VIAL IVP ONE ×2 (10:08→15:15)
[2019-03-23] MEDS ORDERED: DEXAMETHASONE SOD PHOS (MDV) 100 MG/10 ML VIAL IV ONE (10:08)
[2019-03-23] MEDS ORDERED: SCOPOLAMINE 1.5MG/72HR PATCH TRANSDERM ONE (10:09)
[2019-03-23] MEDS ORDERED: MIDAZOLAM PF (FBP) 2 MG/2 ML VIAL IV ONE (10:10)
--- NOTE | 2019-03-23 10:14 | P.HPADDEND ---
H&P Addendum H&P Addendum Date: 03/23/19 Patient recovering well from ERCP. We'll proceed with laparoscopic cholecystectomy. Benefits and risks described.
[2019-03-23 10:58] LABS: Basophils # (A) 0.1 k/uL (0-0.2); Basophils % (A) 1 %; Eosinophils # (A) 0.2 k/uL (0-0.7); Eosinophils % (A) 2 %; Lymphocytes # (A) 1.6 k/uL (1.0-4.8); Lymphocytes % (A) 14 %; Monocytes # (A) 0.6 k/uL (0-1.0); Monocytes % (A) 5 %; Neutrophils % (A) 78 %
[2019-03-23] MEDS ORDERED: ESMOLOL 100 MG/10 ML VIAL ONE (11:02)
[2019-03-23] MEDS ORDERED: HYDROmorphone (PF) 1 MG/ML ONE (11:02)
[2019-03-23] MEDS ORDERED: ROCURONIUM BROMIDE 10 MG/ML 10 ML VIAL IV ONE (11:02)
[2019-03-23] MEDS ORDERED: LIDOCAINE 1% INJ 10MG/ML (20 ML MDV) ONE (11:02)
[2019-03-23] MEDS ORDERED: GLYCOPYRROLATE 0.2 MG/ML 2 ML VIAL ONE (11:02)
[2019-03-23] MEDS ORDERED: NEOSTIGMINE 1 MG/ML 10 ML VIAL ONE (11:02)
[2019-03-23] MEDS ORDERED: SUCCINYLCHOLINE CHLORIDE 100 MG/5 ML SYR IV ONE (11:02)
[2019-03-23] MEDS ORDERED: PROPOFOL 10 MG/ML 20 ML VIAL IV ONE (11:02)
[2019-03-23] MEDS ORDERED: ALBUTEROL INHALER 60 PUFF/8 GM INHALER INHALATION ONE (11:02)
[2019-03-23] MEDS ORDERED: METOPROLOL TARTRATE 5 MG/5 ML VIAL IVP ONE (11:02)
[2019-03-23] MEDS ORDERED: fentaNYL (PF) 50 MCG/ML 2 ML AMP ONE (11:02)
[2019-03-23] MEDS: SODIUM BICARBONATE TAB 650 MG TAB PO SCH (11:18)
[2019-03-23] MEDS: buPROPion XL 300 MG TAB.ER.24H PO SCH (11:18)
[2019-03-23] MEDS ORDERED: BUPIVACAINE (PF) 0.25% 30 ML VIAL SQ ONE ×2 (11:21→11:33)
[2019-03-23] MEDS ORDERED: LACTATED RINGERS 1,000 ML IV ONE (13:20)
--- NOTE | 2019-03-23 15:18 | P.OP ---
Date of Procedure: 03/23/19 Description of Procedure: SURGEON: SANDRA GARCIA MD PREOPERATIVE DIAGNOSES: 1. Symptomatic gallstones with gallstone pancreatitis 2. Choledocholithiasis secondary to gallstones, severe 3. Jaundice secondary to common bile duct obstruction 4. Status post ERCP 5. Obesity due to excess calories, BMI 32.4 6. Depressive disorder, moderate to severe, uncontrolled 7. Prior history of transient ischemic attack 8. Chronic antiplatelet therapy 9. Elevated liver enzymes POSTOPERATIVE DIAGNOSES: 1. Symptomatic gallstones with gallstone pancreatitis 2. Choledocholithiasis secondary to gallstones, severe 3. Jaundice secondary to common bile duct obstruction 4. Status post ERCP 5. Obesity due to excess calories, BMI 32.4 6. Depressive disorder, moderate to severe, uncontrolled 7. Prior history of transient ischemic attack 8. Chronic antiplatelet therapy 9. Hepatomegaly adding complexity to the case 10. Fatty liver disease 11. Elevated liver enzymes OPERATION: 1. Robotic-assisted da Anthony Xi laparoscopic lysis of adhesions over 2 hours 2. Robotic-assisted da Anthony Xi laparoscopic cholecystectomy, multiport with FIREFLY 3. Placement of right upper quadrant #10 flat drain via right lateral port ESTIMATED BLOOD LOSS: 30 mL. SPECIMENS REMOVED: Gallbladder. COMPLICATIONS: None. OPERATIVE FINDINGS: 1. Hepatomegaly adding complexity to the case 2. Moderate intrahepatic gallbladder 3. Minimal intra-abdominal space adding moderate complexity to case INDICATIONS: The patient is a 28-year-old female who presents with symptomatic gallstones with choledocholithiasis and pancreatitis, status post ERCP. Surgical intervention with a laparoscopic cholecystectomy was described at length including injury to the biliary tree, bleeding, infection, need for further surgery. Informed consent was obtained. Robotic assisted laparoscopic approach was described. Benefits and risks of the procedure including but not limited to bleeding, infection, injury to the biliary tree was described. Informed consent was obtained. DESCRIPTION OF PROCEDURE: Patient was brought to the operating room, placed in supine position. After general induction, the abdomen had been prepped and draped in standard sterile fashion. The robotic da Anthony XI system was primed. After a timeout protocol was performed, the patient had been prepped and draped in standard sterile fashion. The patient was injected with indocyanine green. A 5 mm 0 degrees laparoscopic trocar entry was performed along the left upper quadrant. The abdomen insufflated to 15 mmHg pressure which she tolerated well. Diagnostic laparoscopy demonstrated no injury to bowel viscera or mesentery. An extremely small and tight intra-abdominal space was identified adding complexity to case. Moderate hepatomegaly with fatty liver disease was identified as the gallbladder was also intrahepatic adding additional complexity to her case. Moderate intra-abdominal omental fat was found. Next, two 8 mm robotic ports were placed along the right upper abdomen. The camera 8-mm port was maintained along the epigastrium. Another 8 mm port was placed along the left upper abdominal wall after exchanging the 5 mm port. Please note that the ports were placed at least 10 to 15 cm away from the target anatomy of the gallbladder. The robot was docked along the left lateral abdomen. The patient was repositioned in reverse Trendelenburg position at 20 Using a grasper for arm 3, a grasper for arm 4, including hook cautery for arm 1, the robotic system was docked and primed as described. Instruments were interchanged by the day care assistant including hook cautery, Bovie cautery and clip appliers. I had sat at the console. Adhesions were identified along the infundibulum of the gallbladder and addressed using hook cautery. The tissues along the cystic structures were moderately edematous tense a dome down technique was performed. Careful extensive lysis of adhesions including dissection was performed well over 2 hours to care for release the gallbladder from the liver surface including careful dissection of the infundibulum. The gallbladder fundus was retracted over the dome of the liver. Initial attention was brought to the infundibulum which was gently retracted in the inferior lateral approach. The cystic structures were completely obscured with edematous infundibulum and fatty tissue. A dome down technique was performed removing the gallbladder from the hepatic fossa. Additionally the gallbladder was intrahepatic adding complexity to her case. The gallbladder was decompressed to allow complete removal of the gallbladder including careful dissection at the infundibulum. A critical view was obtained of the cystic duct including cystic lymph node. Large PLASTIC clips were placed along the cystic lymph node. The gallbladder was mobilized to the infundibulum. Electro-Bovie cautery was used to remove the gallbladder from the hepatic fossa. Hemostasis was checked and found to be adequate. The abdomen was irrigated with 1 L normal saline until solution was clear. A flat #10 drain was placed at the hepatic fossa and exited via the right lateral abdominal wall with a 2-0 nylon stitch and bulb suction. The robot was undocked. I re-scrubbed into the case. Using a 10 mm Endo Catch bag via the left upper quadrant incision, the specimen was removed from the abdominal cavity. All pneumoperitoneum instruments were evacuated from the abdominal cavity. The incisions were reapproximated using 4-0 Monocryl in an interrupted subcuticular fashion. Fascial defects were less than 8 mm in size. Please note along the trocar sites, local anesthetic was placed as a field block prior to insertion of all instruments. The skin was cleansed with dilute hydrogen peroxide. Liquid glue was applied to the skin. Optifoam dressing was placed along the left upper quadrant and JESSENIA drain site. At the end of the procedure needle, sponge, and instrument count had been verified correct by the salesperson surgical appliances. The patient was transferred to postanesthesia care unit in stable condition. Console time 162 minutes COMPLEXITY: Secondary to severity of acute cholecystitis including moderate edema of the infundibulum, dome down technique was performed. Moderately intrahepatic gallbladder including large liver added additional complexity to case requiring over 2+ hours of dissection including lysis of adhesions.
[2019-03-23] MEDS ORDERED: HYDROcodone/APAP 5-325MG 1 EACH TAB PO PRN (15:41)
[2019-03-24] MEDS: PIPERACILLIN-TAZOBACTAM 3.375 GM in SODIUM CHLORIDE 0.9% 100 ML IVPB SCH ×2 (00:15→08:16)
[2019-03-24] MEDS: METOCLOPRAMIDE 5 MG/ML 2 ML VIAL IVP SCH ×3 (00:15→13:05)
[2019-03-24] MEDS: SODIUM BICARBONATE TAB 650 MG TAB PO SCH ×2 (00:19→08:15)
[2019-03-24] MEDS: ACETAMINOPHEN TAB 500 MG TAB PO PRN (04:49)
[2019-03-24 07:41] VITALS: TEMP 98
[2019-03-24 08:04] LABS: Basophils % (A) 0 %; Eosinophils # (A) 0.1 k/uL (0-0.7); Eosinophils % (A) 1 %; HCT 41.7 % (34.0-46.0); HGB 13.5 gm/dL (11.4-16.0); Hypochromasia Slight; Lymphocytes # (A) 1.5 k/uL (1.0-4.8); Lymphocytes % (A) 11 %; MCH 28.1 pg (25.0-35.0); MCHC 32.3 g/dL (31.0-37.0); MCV 86.8 fL (80.0-100.0); Mean Platelet Volume 6.5; Monocytes # (A) 0.7 k/uL (0-1.0); Monocytes % (A) 6 %; Neutrophils # (A) 10.5 k/uL (1.3-7.7); Neutrophils % (A) 81 %; Platelet Count 242 k/uL (150-450); WBC 12.9 k/uL (3.8-10.6)
[2019-03-24 08:12] LABS: ALT 548 U/L (9-52); AST 201 U/L (14-36); African American GFR (CKD) >90 (>60 ml/min/1.73 sqM); Albumin 3.4 g/dL (3.5-5.0); Alkaline Phosphatase 235 U/L (38-126); Anion Gap 13 mmol/L; Blood Urea Nitrogen 11 mg/dL (7-17); Calcium 8.9 mg/dL (8.4-10.2); Carbon Dioxide 15 mmol/L (22-30); Chloride 112 mmol/L (98-107); Glucose 86 mg/dL (74-99); Potassium 3.9 mmol/L (3.5-5.1); Sodium 140 mmol/L (137-145); Total Bilirubin 1.6 mg/dL (0.2-1.3); Total Protein 6.5 g/dL (6.3-8.2)
[2019-03-24] MEDS: buPROPion XL 300 MG TAB.ER.24H PO SCH (08:15)
[2019-03-24] MEDS ORDERED: ENOXAPARIN 30 MG/0.3 ML SYRINGE SQ SCH (09:00)
--- NOTE | 2019-03-24 11:31 | P.PN ---
Subjective Progress Note Date: 03/24/19 CHIEF COMPLAINT: Right upper quadrant abdominal pain HISTORY OF PRESENT ILLNESS: The patient is a 28-year-old female admitted for right upper quadrant abdominal pain. Workup demonstrated choledocholithiasis including gallstones. She status post cholecystectomy 03/23/2019, postoperative day 1. She is also status post ERCP 03/22/2019. Her pain is tolerable. She has a JESSENIA drain from her cholecystectomy. She is yet to ambulate or start diet. ROS: No reports of nausea and vomiting. No fevers or chills. No new chest pain. No productive sputum PHYSICAL EXAM: VITAL SIGNS: Reviewed CONSTITUTIONAL: Well developed and in no acute distress. EYES: No sclera icterus. Extraocular movements grossly intact. HEAD, EARS, NOSE, THROAT: Moist buccal mucosa. Head is atraumatic, normocephalic. Hears conversational speech. No nasal drainage. NECK: Supple. No thyroidomegaly. RESPIRATORY: Non-labored respirations and equal bilateral excursions. CARDIOVASCULAR: Palpable 2+ radial pulses. Regular rate. Regular rhythm. ABDOMEN: Incisions clean dry and intact. JESSENIA serosanguineous at right upper quadrant. MUSCULOSKELETAL: No gross deformity of the lower extremities noted. No clubbing. No cyanosis. SKIN: Good skin turgor. Well perfused. NEUROLOGIC: Cranial nerves I through XII grossly intact. No focal or lateralizing signs. PSYCH: Appropriate affect. Alert and oriented to person, place and time. CLINCAL LABS: White blood cell count 15,000, reactive from surgery. LFTs elevated improved over last 48 hours, total bilirubin down from 4.3-1.6 ASSESSMENT: 1. Acute choledocholithiasis 2. Acute cholecystitis 3. Status post cholecystectomy PLAN: 1. Possible discharge today should she tolerate diet. 2. Continue JESSENIA drain. 3. Outpatient antibiotics for choledocholithiasis with acute cholecystitis including gallstone pancreatitis 4. Adjust pain medications 5. Simethicone gas drops for gas. Objective - Vital Signs Vital signs: Vital Signs Temp 98.0 F 03/24/19 07:00 Pulse 74 03/24/19 07:00 Resp 17 03/24/19 07:00 BP 113/77 03/24/19 07:00 Pulse Ox 97 03/24/19 07:00 Intake & Output 03/23/19 03/24/19 03/24/19 18:59 06:59 18:59 Intake Total 1500 390 Output Total 30 0 Balance 1470 390 0 Intake: IV 1500 Intake, IV Titration 150 Amount Sodium Chloride 0.9% 1, 150 000 ml @ 75 mls/hr IV . [id number] [facility] Rx#:[id number] Oral 240 Output: Drainage 0 Right Abdomen 0 Estimated Blood Loss 30 Other: # Voids 1 - Labs CBC & Chem 7: 03/24/19 07:08 03/24/19 07:08 Labs: Abnormal Lab Results - Last 24 Hours (Table) 03/24/19 03/24/19 Range/Units 07:08 07:08 WBC 12.9 H (3.8-10.6) k/uL Neutrophils # 10.5 H (1.3-7.7) k/uL Chloride 112 H (98-107) mmol/L Carbon Dioxide 15 L (22-30) mmol/L Total Bilirubin 1.6 H (0.2-1.3) mg/dL AST 201 H (14-36) U/L ALT 548 H (9-52) U/L Alkaline Phosphatase 235 H (38-126) U/L Albumin 3.4 L (3.5-5.0) g/dL Assessment and Plan (1) Acute cholecystitis Current Visit: Yes Status: Acute Code(s): K81.0 - ACUTE CHOLECYSTITIS SNOMED Code(s): 47245951 (2) Choledocholithiasis with acute cholecystitis Current Visit: Yes Status: Acute Code(s): K80.42 - CALCULUS OF BILE DUCT W ACUTE CHOLECYSTITIS W/O OBSTRUCTION SNOMED Code(s): 95828776 (3) Elevated liver enzymes Current Visit: Yes Status: Acute Code(s): R74.8 - ABNORMAL LEVELS OF OTHER SERUM ENZYMES SNOMED Code(s): 219202049 (4) Right upper quadrant abdominal pain Current Visit: Yes Status: Acute Code(s): R10.11 - RIGHT UPPER QUADRANT PAIN SNOMED Code(s): 003113070 (5) Hypertension Current Visit: No Status: Acute Code(s): I10 - ESSENTIAL (PRIMARY) HYPERTENSION SNOMED Code(s): 46965661 (6) Transient cerebral ischemia Current Visit: No Status: Acute Code(s): G45.9 - TRANSIENT CEREBRAL ISCHEMIC ATTACK, UNSPECIFIED SNOMED Code(s): 234941258 (7) Depressive disorder Current Visit: Yes Status: Acute Code(s): F32.9 - MAJOR DEPRESSIVE DISORDER, SINGLE EPISODE, UNSPECIFIED SNOMED Code(s): 99800794 (8) Acute gallstone pancreatitis Current Visit: Yes Status: Acute Code(s): K85.10 - BILIARY ACUTE P ANCREATITIS WITHOUT NECROSIS OR INFECTION SNOMED Code(s): 252022958 (9) Status post cholecystectomy Current Visit: Yes Status: Acute Code(s): Z90.49 - ACQUIRED ABSENCE OF OTHER SPECIFIED PARTS OF DIGESTIVE TRACT SNOMED Code(s): 224900664
[2019-03-24] MEDS ORDERED: ACETAMINOPHEN TAB 325 MG TAB PO SCH (12:00)
[2019-03-24] MEDS ORDERED: SIMETHICONE 40 MG/0.6 ML DROPS 2,000 MG/30 ML BOTTLE PO SCH (12:30)
[2019-03-24] MEDS ORDERED: ONDANSETRON 4 MG/2 ML VIAL IVP PRN (15:10)
--- NOTE | 2019-03-24 15:42 | P.DS ---
Providers Date of admission: 03/19/19 13:45 Expected date of discharge: 03/24/19 Attending physician: Yissel Doshi Consults: 03/18/19 16:44 Consult Physician Urgent Consulting Provider: Tony Baker Consult Reason/Comments: medical care Do you want consulting provider notified?: Yes 03/20/19 17:58 Consult Physician Routine Consulting Provider: Johnna Aldrich Consult Reason/Comments: Choledocholithiasis Do you want consulting provider notified?: Yes, Notify in am Primary care physician: Carlos Spencer - Discharge Diagnosis(es) (1) Acute cholecystitis Current Visit: Yes Status: Acute (2) Choledocholithiasis with acute cholecystitis Current Visit: Yes Status: Acute (3) Elevated liver enzymes Current Visit: Yes Status: Acute (4) Right upper quadrant abdominal pain Current Visit: Yes Status: Acute (5) Hypertension Current Visit: No Status: Acute (6) Transient cerebral ischemia Current Visit: No Status: Acute (7) Depressive disorder Current Visit: Yes Status: Acute (8) Acute gallstone pancreatitis Current Visit: Yes Status: Acute (9) Status post cholecystectomy Current Visit: Yes Status: Acute (10) S/P ERCP Current Visit: Yes Status: Acute (11) Choledocholithiasis Current Visit: Yes Status: Acute (12) Generalized anxiety disorder Current Visit: Yes Status: Acute Hospital Course: POSTOPERATIVE DIAGNOSES: 1. Symptomatic gallstones with gallstone pancreatitis 2. Choledocholithiasis secondary to gallstones, severe 3. Jaundice secondary to common bile duct obstruction 4. Status post ERCP 5. Obesity due to excess calories, BMI 32.4 6. Depressive disorder, moderate to severe, uncontrolled 7. Prior history of transient ischemic attack 8. Chronic antiplatelet therapy 9. Hepatomegaly adding complexity to the case 10. Fatty liver disease 11. Elevated liver enzymes COURSE: The patient is a 28-year-old female who initially presented with right upper quadrant abdominal pain with known history of gallstones. Upon admission, patient's liver enzymes were elevated with features consistent with choledocholithiasis. GI team was consulted. She was discontinued off Plavix as a result for anticipation for procedures. She has baseline history of severe generalized anxiety disorders including depressive disorder which medicine team was managing. She underwent ERCP with findings confirming gallstonesin her common bile dust. Separately, the patient was then taken to the operating room where she underwent cholecystectomy. Intraoperative findings were consistent with severe acute cholecystitis where a drain was placed. Postoperatively, right upper quadrant abdominal pain had markedly improved. LFTs had moderately improved including total bilirubin levels. Low-fat diet she had tolerated. Prior to discharge, discharge instructions were reviewed which she verbalized understanding. All medications include new antibiotics including pain meds were reviewed. Plavix has been held with symptomatic gallstones with choledocholithiasis and pancreatitis, status post ERCP. Procedures: OPERATION: 1. Robotic-assisted da Anthony Xi laparoscopic lysis of adhesions over 2 hours 2. Robotic-assisted da Anthony Xi laparoscopic cholecystectomy, multiport with FIREFLY 3. Placement of right upper quadrant #10 flat drain via right lateral port ERCP 03/22/2019 Patient Condition at Discharge: Stable Plan - Discharge Summary Discharge Rx Participant: Yes New Discharge Prescriptions: New Ibuprofen [Motrin] 600 mg PO Q8HR PRN #30 tab PRN Reason: Pain Acetaminophen Tab [Tylenol Tab] 500 mg PO Q6H PRN #30 tablet PRN Reason: Pain HYDROcodone/APAP 5-325MG [[place] 5-325] 1 tab PO Q6HR PRN 3 Days #10 tab PRN Reason: Pain Amoxicillin/Potassium Clav [Augmentin 875-125 Tablet] 1 tab PO Q12HR #10 tab Continue buPROPion HCL [Wellbutrin XL] 300 mg PO DAILY Dextroamphetamine/Amphetamine [Adderall] 10 mg PO BID clonazePAM [KlonoPIN] 0.5 mg PO BID PRN PRN Reason: Anxiety Ranitidine HCl [Zantac] 150 mg PO BID Discontinued Clopidogrel [Plavix] 75 mg PO DAILY Cyanocobalamin (Vitamin B-12) [Vitamin B-12] 1,000 mcg PO DAILY Cholecalciferol (Vitamin D3) [Vitamin D3] 2,000 mg PO DAILY Discharge Medication List Dextroamphetamine/Amphetamine [Adderall] 10 mg PO BID 03/02/19 [History] Ranitidine HCl [Zantac] 150 mg PO BID 03/02/19 [History] buPROPion HCL [Wellbutrin XL] 300 mg PO DAILY 03/02/19 [History] clonazePAM [KlonoPIN] 0.5 mg PO BID PRN 03/02/19 [History] Acetaminophen Tab [Tylenol Tab] 500 mg PO Q6H PRN #30 tablet 03/24/19 [Rx] Amoxicillin/Potassium Clav [Augmentin 875-125 Tablet] 1 tab PO Q12HR #10 tab 03/24/19 [Rx] HYDROcodone/APAP 5-325MG [[place] 5-325] 1 tab PO Q6HR PRN 3 Days #10 tab 03/24/19 [Rx] Ibuprofen [Motrin] 600 mg PO Q8HR PRN #30 tab 03/24/19 [Rx] Follow up Appointment(s)/Referral(s): Carlos Spencer MD [Primary Care Provider] - 1-2 days Yissel Doshi MD [STAFF PHYSICIAN] - 03/28/19 [facility], [NON-STAFF] - As Needed Patient Instructions/Handouts: *Surgery [facility] - Scopalamine Patch Instructions, German-Dee Drain Care (DC), Laparoscopic Cholecystectomy (GEN), ERCP (Endoscopic Retrograde Cholangiopancreatography) (DC) Activity/Diet/Wound Care/Special Instructions: Low-fat diet. Keep dressing at JESSENIA site dry. No lifting over 10 pounds in 10 days 04/03/2019. No bathtub soaks until JESSENIA discontinued 04/03/2019 Discharge Disposition: HOME SELF-CARE
[2019-03-24 16:23] VITALS: BP 123/82; PULSE 77; RESP 18
--- NOTE | 2019-03-25 21:57 | P.PN ---
Progress Note - Text Progress Note Date: 03/24/19 Interval history: This is a very pleasant 28-year-old patient who follows with Dr. Spencer. Chronic stable medical conditions include GERD, anxiety, depression. Had asthma when many years ago. Patient had a stroke in 2016 with no physical deficits now which patient has been on Plavix. For 3 weeks patient been having right upper quadrant pain and some nausea. And she was referred to see surgeon Dr. Mata. Patient was seen 6 days ago. Plan was to proceed with surgery after having clearance from neurology at what appears to be cardiology. In the meantime for last to 3 days. Patient's symptoms and become much worse with more pain in the right upper quadrant and much more nausea. Patient lost her appetite. Patient presented to the ER and was admitted for the same. No fever no chills. Tired rundown. Patient admitted. Acute cholecystitis with gallstones. Surgery was postponed because patient is on Plavix. On IV Zosyn. Patient did undergo MRCP. Following day she underwent ERCP by Dr. Jenkins. Common bile duct was dilated and 2 small filling defects were noted. In the distal CBD. Patient underwent biliary sphincterotomy and balloon stone extraction. Pancreatic duct was normal. the next day patient lipase did go up to 5406. That is ERCP-related pancreatitis. Patient was taken to the OR. Cholecystectomy and gallstones were removed. Today-sitting upon edge of the bed. Decreased appetite. Has a JESSENIA drain. Some bloody drainage. Some pain is present. No nausea vomiting.. Review of systems: Was done for constitutional, cardiovascular, GI, pulmonary. relevant finding as above Current medications reviewed in today's electronic records Physical examination: VITAL SIGNS: 98, 74, 17, 11 3 x 77, 97% room air GENERAL: Sitting up in, comfortable EYES: Pupils equal. Conjunctiva icterus HEENT: External appearance of nose and ears normal, oral cavity grossly normal. NECK: JVD not raised; masses not palpable. HEART: First and second heart sounds are normal; no edema. LUNGS: Respiratory rate normal; clear to auscultation. ABDOMEN: Soft, right upper quadrant tenderness, no guarding or rigidity, liver spleen not palpable, no masses palpable. JESSENIA drain. PSYCH: Alert and oriented x3; mood and affect anxiousl. INVESTIGATIONS, reviewed in the clinical context: White count 12.9 hemoglobin 13.5 potassium 3.9 creatinine 0.91 Total bilirubin 1.6 AST 201 ALT 548 lipase 174 Previous testing: White count 9.6 hemoglobin 14.1 potassium 3.9 bicarb 21 16 creatinine 1.04 bilirubin went from 0.6-1.5 AST ALT was 24/41 now up to 1 89 x 1 50 alk phos is 146 the other labs are from yesterday's admission Abdominal ultrasound-gallstones and gallbladder sludge Abdominal ultrasound done on March 02 showed-small gallstones and or gallbladder sludge without ultrasound evidence of acute cholecystitis. Fatty infiltration of the liver Assessment: -Acute on chronic cholecystitis, associated with gallstones, status post cholecystectomy and removal of gallstones. -Hyperbilirubinemia and early obstructive hepatitis , -Obesity BMI 32.4 -GERD -Anxiety depression otherwise specified -Metabolic acidosis -ERCP-related acute pancreatitis -Biliary sphincterotomy and gallstone extraction Plan: Care was discussed with the patient and mother. Not much of an appetite. Encouraged to ambulate. Continue with antibiotics.
== END 2019-03-24 16:50 | disposition home or self-care (01) | DRG 417 ==
LOC: EC 14:34 → 4SSUR 16:48 → OBSVTOIN 03-19 13:45 → 4MS4W 03-19 15:18 → 4SSUR 03-23 15:53
PROVIDERS: ADMIT Surgery Plastic and Reconstructive Surgery; ATTEND Surgery Plastic and Reconstructive Surgery
PROC: 0FC98ZZ Extirpation of Matter from Common Bile Duct, Via Natural or Artificial Opening Endoscopic (ICD-10-PCS; 2019-03-22)
PROC: 0DNW4ZZ Release Peritoneum, Percutaneous Endoscopic Approach (ICD-10-PCS; 2019-03-23)
PROC: 8E0W4CZ Robotic Assisted Procedure of Trunk Region, Percutaneous Endoscopic Approach (ICD-10-PCS; 2019-03-23)
PROC: 0W9F40Z Drainage of Abdominal Wall with Drainage Device, Percutaneous Endoscopic Approach (ICD-10-PCS; 2019-03-23)
PROC: 0FT44ZZ Resection of Gallbladder, Percutaneous Endoscopic Approach (ICD-10-PCS; principal; 2019-03-23 11:25)
DX: K80.67 Calculus of gallbladder and bile duct with acute and chronic cholecystitis with obstruction (principal); K85.10 Biliary acute pancreatitis without necrosis or infection; E87.2 Acidosis; Q44.1 Other congenital malformations of gallbladder; E66.09 Other obesity due to excess calories; Z68.32 Body mass index [BMI] 32.0-32.9, adult; F41.1 Generalized anxiety disorder; Z86.73 Personal history of transient ischemic attack (TIA), and cerebral infarction without residual deficits; I10 Essential (primary) hypertension; J45.909 Unspecified asthma, uncomplicated; K21.9 Gastro-esophageal reflux disease without esophagitis; K76.0 Fatty (change of) liver, not elsewhere classified; Z79.02 Long term (current) use of antithrombotics/antiplatelets; Z79.899 Other long term (current) drug therapy; Z82.49 Family history of ischemic heart disease and other diseases of the circulatory system; K66.0 Peritoneal adhesions (postprocedural) (postinfection); Z79.82 Long term (current) use of aspirin
CPT/HCPCS: 36415; 43264; 74181; 74328; 76705; 80053; 81001; 81025; 82150; 83605; 83690; 83735; 85025; 88304; 96361; 96365; 99285

== ENCOUNTER → 2019-04-14 | Outpatient (CLI) | payer OTHER ==
[2019-04-14 17:24] LABS: HCT 44.4 % (34.0-46.0); HGB 15.1 gm/dL (11.4-16.0); MCHC 34.1 g/dL (31.0-37.0); MCV 84.9 fL (80.0-100.0); Mean Platelet Volume 6.3; Platelet Count 268 k/uL (150-450); RBC 5.23 m/uL (3.80-5.40); RDW 14.2 % (11.5-15.5); WBC 10.8 k/uL (3.8-10.6)
[2019-04-14 22:54] LABS: African American GFR (CKD) 100.8 (60.0-200.0); Albumin 4.4 g/dL (3.80-4.90); Albumin/Globulin Ratio 2.1 (1.60-3.17); Anion Gap 8.7 mmol/L (4.00-12.00); BUN/Creat Ratio 16.67 Ratio (12.00-20.00); Calcium 9.4 mg/dL (8.7-10.3); Carbon Dioxide 22.3 mmol/L (21.6-31.8); Globulin 2.1 g/dL (1.6-3.3); Potassium 4.6 mmol/L (3.5-5.5); Total Bilirubin 0.4 mg/dL (0.3-1.2); Total Protein 6.5 g/dL (6.2-8.2)
== END | disposition home or self-care (01) ==
LOC: LABWHC1 16:42
PROVIDERS: ATTEND Surgery Plastic and Reconstructive Surgery
DX: K80.20 Calculus of gallbladder without cholecystitis without obstruction (principal)
CPT/HCPCS: 36415; 80053; 85027

== ENCOUNTER → 2019-04-21 | Outpatient (CLI) | payer OTHER ==
[2019-04-21 17:14] LABS: HCT 45.4 % (34.0-46.0); HGB 15.2 gm/dL (11.4-16.0); MCH 28.3 pg (25.0-35.0); MCHC 33.6 g/dL (31.0-37.0); MCV 84.5 fL (80.0-100.0); Mean Platelet Volume 6.8; Platelet Count 275 k/uL (150-450); RBC 5.38 m/uL (3.80-5.40); RDW 14.6 % (11.5-15.5)
[2019-04-21 23:24] LABS: African American GFR (CKD) 100.8 (60.0-200.0); Albumin 4.4 g/dL (3.80-4.90); Albumin/Globulin Ratio 2.1 (1.60-3.17); Anion Gap 8.9 mmol/L (4.00-12.00); BUN/Creat Ratio 16.67 Ratio (12.00-20.00); Calcium 8.9 mg/dL (8.7-10.3); Carbon Dioxide 22.1 mmol/L (21.6-31.8); Globulin 2.1 g/dL (1.6-3.3); Potassium 3.8 mmol/L (3.5-5.5); Total Bilirubin 0.4 mg/dL (0.3-1.2); Total Protein 6.5 g/dL (6.2-8.2)
== END | disposition home or self-care (01) ==
LOC: LABWHC1 16:57
PROVIDERS: ATTEND Surgery Plastic and Reconstructive Surgery
DX: K80.20 Calculus of gallbladder without cholecystitis without obstruction (principal)
CPT/HCPCS: 36415; 80053; 85027

== ENCOUNTER → 2019-04-27 | Outpatient (CLI) | payer OTHER ==
--- NOTE | 2019-04-28 07:36 | NM ---
EXAMINATION TYPE: NM hepatobiliary wo EF DATE OF EXAM: 04/27/2019 COMPARISON: NONE HISTORY: Exclude biliary leak. Recent cholecystectomy by weeks ago. TECHNIQUE: After the intravenous administration of 5.13 mCi Tc 99m Mebrofenin hepatobiliary scintigra phy is performed. Immediate images post injection. FINDINGS: There is normal uptake and excretion of the liver throughout the examination. Excretion thr ough the bile ducts into the small bowel begins at 6 minutes. No abnormal focal radiotracer accumulat ion is seen near the gallbladder fossa to suggest biloma. No extravasation is seen to suggest bile le ak. Unremarkable postoperative examination. IMPRESSION: No scintigraphic evidence of biloma nor bile leak.
== END | disposition home or self-care (01) ==
LOC: RADNMMAIN 14:47
PROVIDERS: ATTEND Surgery Plastic and Reconstructive Surgery
DX: K83.2 Perforation of bile duct (principal); R79.89 Other specified abnormal findings of blood chemistry
CPT/HCPCS: 78226; A9537

== ENCOUNTER → 2019-05-29 | Outpatient (CLI) | payer OTHER ==
[2019-05-29 11:19] LABS: HCT 46.4 % (34.0-46.0); HGB 15.4 gm/dL (11.4-16.0); MCH 28.3 pg (25.0-35.0); MCHC 33.2 g/dL (31.0-37.0); MCV 85.3 fL (80.0-100.0); Mean Platelet Volume 7.4; Platelet Count 320 k/uL (150-450); RBC 5.44 m/uL (3.80-5.40); RDW 14.4 % (11.5-15.5); WBC 8.4 k/uL (3.8-10.6)
[2019-05-29 17:57] LABS: ALT 45 U/L (8-44); AST 34 U/L (13-35); Albumin/Globulin Ratio 1.87 (1.60-3.17); Alkaline Phosphatase 128 U/L (41-126); Bilirubin, Conjugated <0.20 mg/dL (0.20-0.40); Globulin 2.3 g/dL (1.6-3.3); Total Bilirubin 0.4 mg/dL (0.3-1.2); Total Protein 6.6 g/dL (6.2-8.2)
== END | disposition home or self-care (01) ==
LOC: LABWHC1 09:29
DX: R74.8 Abnormal levels of other serum enzymes (principal)
CPT/HCPCS: 36415; 80076; 85027

== ENCOUNTER 2019-08-22 16:43 | Emergency (ER) | payer OTHER ==
[2019-08-22] MEDS ORDERED: ACETAMINOPHEN TAB 500 MG TAB PO STA (17:21)
[2019-08-22 18:05] LABS: Appearance,Urine Clear (Clear); Bilirubin,Urine Negative (Negative); Blood,Urine Negative (Negative); Color,Urine Yellow; Glucose,Urine (UA) Negative (Negative); Ketones,Urine Trace (Negative); Leukocyte Esterase,Urine Small (Negative); Mucus,Urine Rare /hpf; Nitrite,Urine Negative (Negative); PH, Urine 6.5 (5.0-8.0); Protein,Urine Negative (Negative); RBC,Urine <1 /hpf (0-5); Specific Gravity,Urine 1.012 (1.001-1.035); Squamous Epithelial Cell,Urine 4 /hpf (0-4); Urobilinogen,Urine <2.0 mg/dL (<2.0); WBC,Urine 2 /hpf (0-5)
--- NOTE | 2019-08-22 18:24 | XR ---
EXAMINATION TYPE: XR chest 2V DATE OF EXAM: 08/22/2019 COMPARISON: 09/28/2017 HISTORY: Fever TECHNIQUE: FINDINGS: Heart and mediastinum are normal. Lungs are clear. Diaphragm is normal. Bony thorax is inta ct. IMPRESSION: Normal chest. No change.
[2019-08-22] MEDS ORDERED: IBUPROFEN 800 MG TAB PO STA (18:37)
--- NOTE | 2019-08-22 18:56 | ED ---
General Adult HPI - General Chief complaint: Fever Stated complaint: Sent by doctor, rapid HR Time Seen by Provider: 08/22/19 17:01 Source: patient, RN notes reviewed Mode of arrival: ambulatory Limitations: no limitations - History of Present Illness Initial comments: 29-year-old female presents to the emergency department for a chief complaint of fever. Patient has had a fever for one day. States she also woke up with dizziness. States this is consistent with previous symptoms of vertigo. States it feels exactly the same. States that moving her head makes it worse. Patient admits to minimal headache. Denies neck pain or stiffness. Patient does have right ear pain and pressure. Patient saw her doctor today and was sent to the ER for evaluation. Denies any difficulty in ambulating. Denies any weakness in the upper or lower extremities. Denies cough. Patient has not taken anything for fever. Patient does have a history of ischemic stroke and is currently taking Plavix. Patient's previous stroke symptoms were right-sided facial droop. Patient denies any of these similar symptoms today. Patient has no other complaints at this time including shortness of breath, chest pain, abdominal pain, nausea or vomiting, headache, or visual changes. - Related Data Home Medications Medication Instructions Recorded Confirmed Dextroamphetamine/Amphetamine 10 mg PO BID 03/02/19 03/18/19 [Adderall] Ranitidine HCl [Zantac] 150 mg PO BID 03/02/19 03/18/19 buPROPion HCL [Wellbutrin XL] 300 mg PO DAILY 03/02/19 03/18/19 clonazePAM [KlonoPIN] 0.5 mg PO BID PRN 03/02/19 03/18/19 Previous Rx's Medication Instructions Recorded Acetaminophen Tab [Tylenol Tab] 500 mg PO Q6H PRN #30 tablet 03/24/19 Amoxicillin/Potassium Clav 1 tab PO Q12HR #10 tab 03/24/19 [Augmentin 875-125 Tablet] HYDROcodone/APAP 5-325MG [[place] 1 tab PO Q6HR PRN 3 Days #10 tab 03/24/19 5-325] Ibuprofen [Motrin] 600 mg PO Q8HR PRN #30 tab 03/24/19 Allergies Allergy/AdvReac Type Severity Reaction Status Date / Time No Known Allergies Allergy Verified 08/22/19 16:49 Review of Systems ROS Statement: Those systems with pertinent positive or pertinent negative responses have been documented in the HPI. ROS Other: All systems not noted in ROS Statement are negative. Past Medical History Past Medical History: Asthma, CVA/TIA, GERD/Reflux History of Any Multi-Drug Resistant Organisms: None Reported Past Surgical History: Cholecystectomy Past Anesthesia/Blood Transfusion Reactions: No Reported Reaction Past Psychological History: Anxiety, Depression Smoking Status: Never smoker Past Alcohol Use History: Occasional Past Drug Use History: None Reported - Past Family History Father Family Medical History: No Reported History Mother Family Medical History: AFIB, Hypertension General Exam Limitations: no limitations General appearance: alert, in no apparent distress Head exam: Present: atraumatic, normocephalic, normal inspection Eye exam: Present: normal appearance, PERRL, EOMI. Absent: scleral icterus, conjunctival injection, periorbital swelling ENT exam: Present: normal exam, normal oropharynx, mucous membranes moist, TM's normal bilaterally (Nonerythematous, nonbulging, right tympanic membrane appears within normal limits.), normal external ear exam Neck exam: Present: normal inspection, full ROM (pt able to touch chin to chest into extend his neck fully). Absent: tenderness, meningismus (Negative Kernig, negative Brudzinski), lymphadenopathy Respiratory exam: Present: normal lung sounds bilaterally. Absent: respiratory distress, wheezes, rales, rhonchi, stridor Cardiovascular Exam: Present: regular rate, normal rhythm, normal heart sounds. Absent: systolic murmur, diastolic murmur, rubs, gallop, clicks GI/Abdominal exam: Present: soft, normal bowel sounds. Absent: distended, tenderness, guarding, rebound, rigid Neurological exam: Present: alert, oriented X3, CN II-XII intact, normal gait, other (GCS 15) Expanded Patient oriented to: Present: person, place, time Speech: Present: fluid speech Cranial nerves: EOM's Intact: Normal, Tongue Deviation: Normal, Nystagmus: Normal (minimal fatiguable lateral nystagmus ), Facial Sensation: Normal Cerebellar function: Finger to Nose: Normal, Heel to Roa: Normal, Romberg: Normal Upper motor neuron: Pronator Drift: Normal Sensory exam: Upper Extremity Light Touch: Normal, Upper Extremity Pin Prick: Normal, Lower Extremity Light Touch: Normal, Lower Extremity Pin Prick: Normal Motor strength exam: RUE: 5 (No drift), LUE: 5 (No drift), RLE: 5 (No drift), LLE: 5 (No drift) Eye Response: (4) open spontaneously Motor Response: (6) obeys commands Verbal Response: (5) oriented Shea Total: 15 Psychiatric exam: Present: normal affect, normal mood Course Vital Signs 08/22/19 08/22/19 16:45 18:37 Temperature 100.8 F H 100.0 F H Pulse Rate 128 H 117 H Respiratory 20 Rate Blood Pressure 146/83 O2 Sat by Pulse 98 99 Oximetry Medical Decision Making - Medical Decision Making Patient is well appearing. Nontoxic. Vitals are stable. Patient does have a mild fever and does have reflexive tachycardia. No antipyretics on board. Patient was given Tylenol upon arrival. Physical exam is unremarkable. No evidence of meningismus. There are no focal neurologic deficits. Patient is ambulating with a normal gait. No evidence of ataxia. Patient did have a positive Alisa-Hallpike maneuver to the right. She does not have any evidence of otitis media. Patient was given Tylenol in the emergency department and this did improve her fever and her rate somewhat. She likely has a component of anxiety as well. It stating that she does feel anxious. Influenza is negative. Urinalysis is unremarkable. Chest x-ray shows a normal chest. I discussed this case in detail with Dr. Reyes and we reviewed laboratory findings as well as vitals. At this time patient likely is a viral syndrome coupled with her chronic vertigo. Recommend that she follow up with her primary care tomorrow for recheck and return if she has any worsening symptoms and that time including difficulty walking or neck stiffness. - Lab Data Lab Results 08/22/19 08/22/19 08/22/19 Range/Units 17:52 17:52 17:52 Urine Color Yellow Urine Appearance Clear (Clear) Urine pH 6.5 (5.0-8.0) Ur Specific [place] 1.012 (1.001-1.035) Urine Protein Negative (Negative) Urine Glucose (UA) Negative (Negative) Urine Ketones Trace H (Negative) Urine Blood Negative (Negative) Urine Nitrite Negative (Negative) Urine Bilirubin Negative (Negative) Urine Urobilinogen <2.0 (<2.0) mg/dL Ur Leukocyte Esterase Small H (Negative) Urine RBC <1 (0-5) /hpf Urine WBC 2 (0-5) /hpf Ur Squamous Epith Cells 4 (0-4) /hpf Urine Mucus Rare H (None) /hpf Urine HCG, Qual Not Detected (Not Detectd) Influenza Type A RNA Not Detected (Not Detectd) Influenza Type B (PCR) Not Detected (Not Detectd) Disposition Clinical Impression: Fever Disposition: HOME SELF-CARE Condition: Good Instructions (If sedation given, give patient instructions): Fever in Adults (ED) Additional Instructions: Take Tylenol for fever. Drink plenty of fluids. Please follow up with primary care in 1-2 days. Return to the emergency department if you have any worsening symptoms. Is patient prescribed a controlled substance at d/c from ED?: No Referrals: Carlos Spencer MD [Primary Care Provider] - 1-2 days Time of Disposition: 18:55
[2019-08-22 19:12] VITALS: BP 133/78; PULSE 115; RESP 18; TEMP 99
== END 2019-08-22 19:13 | disposition home or self-care (01) ==
LOC: EC 16:43
DX: R50.9 Fever, unspecified (principal); R00.0 Tachycardia, unspecified; H81.11 Benign paroxysmal vertigo, right ear; F41.9 Anxiety disorder, unspecified; K21.9 Gastro-esophageal reflux disease without esophagitis; F32.9 Major depressive disorder, single episode, unspecified; Z79.899 Other long term (current) drug therapy; Z86.73 Personal history of transient ischemic attack (TIA), and cerebral infarction without residual deficits
CPT/HCPCS: 71046; 81001; 81025; 87502; 99283

== ENCOUNTER → 2024-07-13 | Outpatient (CLI) | payer BC ==
[2024-07-13 23:00] LABS: Urine Alcohol Negative (Negative); Urine Barbiturate Negative (Negative); Urine Cocaine Negative (Negative); Urine Methadone Negative (Negative); Urine Opiates Negative (Negative); Urine Phencyclidine Negative (Negative)
== END | disposition home or self-care (01) ==
LOC: LABWHC1 15:39
PROVIDERS: ATTEND Psychiatry & Neurology Psychiatry
DX: F34.89 Other specified persistent mood disorders (principal); Z79.899 Other long term (current) drug therapy
CPT/HCPCS: 80306